=== PATIENT | female | born 1950 | race Caucasian/White ===

== ENCOUNTER 2016-02-06 14:21 | Inpatient (IN) | payer MEDICARE ==
[~2016-02-06] VITALS: Ht 162.6 cm; Wt 70.0 kg
[~2016-02-06 14:21] MED LIST: CLON1 PO; GABA300 PO; IBUP800T23 PO; LAMO100 PO; METHO500 PO; MOTR200T PO; OXYC1SOL5 PO; PERI8.6T PO; RANI150 PO
--- NOTE | 2016-02-09 14:19 | MH ---
cc: TERRANCE MCKINNON MD DATE OF ADMISSION: 02/23/2016 PREOPERATIVE DIAGNOSIS Rheumatoid arthritis, left knee. PLANNED PROCEDURE Left total knee arthroplasty. CHIEF COMPLAINT AND HISTORY OF PRESENT ILLNESS This is a 65-year-old female with a history of rheumatoid arthritis, has multiple joint involvement. The patient currently has left knee pain which is severe and limits her activity. She has undergone a previous right total knee arthroplasty in [place] as well as a left total elbow replacement with subsequent removal. The patient has had progressive knee pain. This was aggravated after a fall in July of 2015. The patient has a history of spinal stenosis and has associated back and hip pain as well. The patient's left knee has been persistent. It has been unresponsive to treatment including medication, injection, pain medication, attempts at weight loss and therapy. Her x-rays show evidence of advanced arthritic change which is tricompartmental in nature but mildly worse in the medial compartment. It has the appearance of both inflammatory as well as osteoarthritic change. The patient feels very limited in her activity and given the alternatives of treatment, presents for total knee arthroplasty. PAST MEDICAL HISTORY The past medical history is significant for: 1. Rheumatoid arthritis. 2. Depression. 3. Hepatitis C. 4. Bipolar disorder. PREVIOUS SURGERIES 1. Right total knee arthroplasty. 2. Left total elbow replacement with subsequent removal. 3. ORIF of a right femur fracture. MEDICATIONS Current medications are: 1. Alprazolam 2 mg. 2. Clonazepam 1 mg. 3. Dilaudid 4 mg. 4. Gabapentin 300 mg. 5. Lamotrigine 100 mg. 6. Methotrexate 25 mg per mL injection. 7. Prednisone 10 mg. 8. Tizanidine 4 mg. 9. Zanaflex 4 mg. ALLERGIES CODEINE. FAMILY HISTORY Family history is significant for bladder cancer, emphysema, Alzheimer's dementia, prostate cancer and heart disease. SOCIAL HISTORY The patient smokes one-half pack of cigarettes daily and denies alcohol use. She is single. She is not employed. She is [id number]. REVIEW OF SYSTEMS Review of systems is otherwise noncontributory. PHYSICAL EXAMINATION HEENT: Normocephalic, atraumatic. Pupils equal, round and reactive to light. Extraocular muscles are intact. The oropharynx is clear. NECK: Neck is supple. There is minimally restricted range of motion. LUNGS: Clear to auscultation. HEART: Heart has a regular rate and rhythm. ABDOMEN: Soft, nondistended. Bowel sounds are present. /RECTAL: Deferred. EXTREMITIES: Reveals no cyanosis, clubbing or edema. The right knee has a well-healed surgical incision. The left knee has hypertrophic changes over the medial aspect. There is a small effusion. Range of motion is restricted from 10-110 degrees of flexion. She does have satisfactory mobility of the hip without pain. NEUROLOGIC: No focal deficit. She ambulates with a cane. ASSESSMENT Rheumatoid arthritis, left knee. PLAN Given the alternatives to the treatment, the patient does wish to pursue total knee arthroplasty based on the persistent and progressive nature of her symptomatology, its limitation of her daily activity and its unresponsiveness to treatment. The nature of the planned surgical procedure, the risks, the expected benefits, as well as the postoperative expectations have been discussed with her in detail. In addition, the alternatives of treatment and risk of same were discussed. The possibility of the procedure not improving her symptomatology was discussed and she acknowledges full understanding and consents to it. Terrance Mckinnon MD RKG/TLL /11:55 AM /2:13 PM
--- NOTE | 2016-04-12 10:17 | MH ---
cc: VELASQUEZ MCKINNON MD AKA: Tamela Dai DATE OF ADMISSION: 04/26/2016 PREOPERATIVE DIAGNOSIS Rheumatoid arthritis left knee PLANNED PROCEDURE Left total knee arthroplasty. CHIEF COMPLAINT AND HISTORY OF PRESENT ILLNESS This 64-year-old female has multiarticular rheumatoid arthritis. The patient currently has severe left knee pain. It has been progressive and limits her activity. She has undergone a previous right total knee arthroplasty in [place] as well as a left total elbow replacement and subsequent removal. The patient's knee pain was aggravated in a fall in July of 2015. The patient also has involvement of her spine which also causes back and hip pain. The patient's knee pain has been unresponsive to treatment including medication, injection, pain medication, attempts at weight loss and therapy. X-rays show advanced arthritic changes which is tricompartmental middle in nature but mildly worse in the medial compartment. It has the appearance of both inflammatory as well as osteoarthritic change. Given the limitation of daily activity and its unresponsiveness to treatment, she presents for total knee arthroplasty. PAST MEDICAL HISTORY Significant for - 1. Rheumatoid arthritis. 2. Depression; 3. Hepatitis C. 4. Bipolar disorder. PREVIOUS SURGERY 1. Right total knee arthroplasty. 2. Left total elbow replacement with subsequent removal. 3. ORIF of the right femur fracture. CURRENT MEDICATIONS 1. Alprazolam. 2. Clonazepam. 3. Dilaudid. 4. Gabapentin. 5. Lamotrigine. 6. Methotrexate. 7. Prednisone. 8. Tizanidine. 9. Zanaflex. ALLERGIES CODEINE. FAMILY HISTORY Significant for bladder cancer, emphysema, Alzheimer's dementia, prostate cancer and heart disease. SOCIAL HISTORY The patient smokes 1/2-pack of cigarettes daily and denies alcohol use. She is single. She is not employed. She is [id number]. REVIEW OF SYSTEMS Otherwise noncontributory. PHYSICAL EXAMINATION GENERAL: An otherwise healthy-appearing female in no obvious distress. HEENT: Normocephalic, atraumatic. Pupils equal, round and reactive to light. Extraocular muscles are intact. The oropharynx is clear. NECK: Supple. LUNGS: Clear to auscultation. HEART: Regular rate and rhythm. ABDOMEN: Soft, nondistended. Bowel sounds are present. AND RECTAL EXAMINATIONS: Deferred. EXTREMITIES: No cyanosis, clubbing or edema. The right knee has a well-healed surgical incision. The left knee has hypertrophic changes over the medial aspect. There is a small effusion. Range of motion is restricted from 10 to 110 degrees of flexion. She has satisfactory mobility of the hip without pain. NEUROLOGICALLY: No focal deficit. She ambulates with a cane. ASSESSMENT Rheumatoid arthritis left knee. PLAN Given the alternatives of treatment, the patient does wish to pursue total knee arthroplasty based on the persistent and progressive nature of her symptomatology, limitation of her daily activity and its unresponsiveness to treatment. The nature of the planned surgical procedure, the risks, the expected benefits, as well as the postoperative expectations have been discussed with her in detail. In addition, the alternatives to treatment and risks of same were discussed. The possibility of the procedure not improving her symptomatology was discussed and she acknowledges full understanding and consents to it. MD JENN Solares/JUSTEN /10:53 PM /10:13 AM
[2016-04-12] MEDS ORDERED: GABA600T PO ×2 (12:15)
[2016-04-12] MEDS ORDERED: LAMO100 PO (12:15)
[2016-04-12] MEDS ORDERED: XANA2TAB2 PO (12:15)
[2016-04-12] MEDS ORDERED: BENA25TA3 PO (12:17)
[2016-04-12] MEDS ORDERED: IBUP200T2 PO (12:17)
[2016-04-12] MEDS ORDERED: SOMI25TA PO (12:17)
[2016-04-26] MEDS ORDERED: ACETAMINOPHEN 1000 MG/100 ML VIAL IV ONE (06:47)
[2016-04-26] MEDS ORDERED: GABA300C5 PO ×3 (06:56)
[2016-04-26] MEDS ORDERED: VANCOMYCIN 1000 MG/NS 250 ML (for <70 kg) IV SCH ×2 (07:00)
[2016-04-26] MEDS ORDERED: ceFAZolin 2 GM PREMIX 50 ML IV SCH (07:00)
[2016-04-26] MEDS ORDERED: METOPROLOL TARTRATE 25 MG TAB PO PRN (07:00)
[2016-04-26] MEDS ORDERED: SODIUM CHLORID 0.9% 500 ML IV SCH (07:00)
[2016-04-26] MEDS ORDERED: INSULIN HUMAN REGULAR 1,000 UNITS/10 ML VIAL SQ PRN (07:00)
[2016-04-26 07:09] VITALS: BP 140/61; PULSE 86; RESP 18; TEMP 98.3; O2SAT 100
[2016-04-26] MEDS ORDERED: CIPR500T2 PO (07:22)
[2016-04-26] MEDS ORDERED: DEXAMETHASONE SOD PHOS 4 MG/ML VIAL ONE (08:09)
[2016-04-26] MEDS ORDERED: FAMOTIDINE 20 MG/2 ML VIAL ONE (08:09)
[2016-04-26] MEDS ORDERED: MIDAZOLAM HCL 5 MG/5 ML VIAL ONE (08:09)
[2016-04-26] MEDS ORDERED: ceFAZolin INJ 1,000 MG VIAL ONE (09:28)
[2016-04-26] MEDS: LACTATED RINGER'S 1000 ML INJ 1,000 ML IV SCH ×2 (10:27→20:35)
[2016-04-26] MEDS ORDERED: POVIDONE IODINE 10% SOLN 118 ML BOTTLE TOPICAL PRN (10:30)
[2016-04-26] MEDS ORDERED: MISCELLANEOUS NURSING INFORMATION XX PRN (10:30)
[2016-04-26] MEDS ORDERED: Post-op Orders (for Pharmacy) MISC XX ONE (10:30)
[2016-04-26] MEDS ORDERED: TEMAZEPAM 15 MG CAP PO PRN (10:30)
[2016-04-26] MEDS ORDERED: ONDANSETRON HCL 4 MG/2 ML VIAL IVP PRN (10:30)
[2016-04-26] MEDS ORDERED: diphenhydrAMINE HCL 25 MG CAP PO PRN (10:30)
[2016-04-26] MEDS ORDERED: NALOXONE HCL 0.4 MG/ML AMP IV PRN (10:30)
[2016-04-26] MEDS ORDERED: SODIUM CHLORIDE 0.9% FLUSH 5 ML FLUSH IVF PRN (10:30)
--- NOTE | 2016-04-26 10:37 | PD.OP ---
cc: Terrance Mike MD Operative Report Date of Surgery: Apr 26, 2016 Preoperative Diagnosis: (1) Rheumatoid arthritis involving left knee Postoperative Diagnosis: (1) Rheumatoid arthritis involving left knee Procedure: Left total knee arthroplasty Implants used: [employer] Vanguard total knee system size 65 press-fit femoral component, size 71 cemented tibial component with a 10 mm tibial bearing and a 34 cemented patellar button Anesthesia: Gen. with regional block Surgeon: Terrance Mike Tape Recorder Mechanic(s): Marisela Price PA-C ([place]) The surgical procedure was assisted by my physician's kindergarten teacher assistant. Her presence was necessary throughout the case for manipulation and positioning of the surgical extremity. My PA was assisting me throughout the duration of this procedure. The skill set of the physician kindergarten teacher assistant was medically necessary to complete this procedure. During the surgical case the surgical resident was working at the back table and the physician kindergarten teacher assistant was directly assisting me. Operation and Findings: Indications: This 64-year-old female with multiarticular rheumatoid arthritis has had progressive severe left knee pain. She is very limited in her activity. She has undergone previous right total knee arthroplasty in [place]. The patient's problem is been unresponsive to nonoperative measures including medication, injection, pain medication, tends weight loss and therapy. X-rays are consistent with advanced inflammatory as well as degenerative arthritis. Given the alternatives of the treatment she presents for total knee arthroplasty. Procedure and findings: The patient was taken to the operative suite and after undergoing an adequate level of general anesthesia was kept supine on the operating table. Preoperative antibiotics consisted of Ancef 2 g IV and vancomycin 1 g IV. The left lower extremity was then prepped and draped in usual sterile fashion with alcohol and Hibiclens. A standard anterior approach the knee was made with incision centered over the medial one third of the patella. This was carried down through skin and subcutaneous tense tissue with a knife. The quadricep tendon was identified proximally and the patellar tendon distally. A medial parapatellar arthrotomy was made. A large cloudy joint effusion was evacuated. The fluid was sent for stat Gram stain which revealed few WBCs and no organisms. Upon entering the knee joint is noted to be marked arthritic changes which were tricompartmental in nature. There was diffuse synovitis. A synovectomy was completed. The remnant of the ACL was excised. The menisci were excised. Osteophytes were removed. Attention was first focused on the distal femur where an intramedullary guide was used to make a 5 valgus cut. A sizing jig was then applied and a 65 selected. With the cutting block in place the anterior, posterior and chamfer cuts were made. Attention was then focused on the proximal tibia. An extramedullary guide was used. Approximately 4 mm of bone was resected. The varus/valgus alignment was also checked with an extramedullary guide. The tibia was then sized to a 71. A freehand technique was utilized on the patella. This was sized to a 34. Drill holes were made and trial components placed. The 10 mm tibial bearing gave the best range of motion and stability. There was good patellar tracking. These components were therefore selected. The femoral drill holes were made. The tibial cement punches were made. The wound was thoroughly irrigated with pulse lavage. Bone cement was prepared on the back table. After thorough drying it was applied to the proximal tibia. The tibial component was then impacted in the place. All excess bone cement was removed. The tibial insert was then placed and the locking mechanism seated. The femoral component was then impacted in the place. The knee was then placed in full extension for further compression. After thorough drying bone cement was applied to the undersurface of the patella. The patellar button was seated and held with a compression clamp. All excess bone cement was removed. Once the cement had matured good range of motion, patellar tracking and stability was again noted. The wound was again thoroughly irrigated with pulse lavage. AutoVac drains were left in place. The incision was closed in layers utilizing #1 Vicryl suture on the extensor mechanism, 0 Vicryl suture on the deep tissue, 2-0 Vicryl suture on the subcutaneous tissue and rodolfo on the skin. Sterile dressings were applied the patient was awakened transferred to the hospital bed and taken to the recovery room in stable condition. Estimated blood loss: Less than 100 cc Complications: None Terrance Mike MD Apr 26, 2016 10:27
[2016-04-26] MEDS ORDERED: *HYDROmorphone PF 1 MG VIAL PERIprocedural Use ONLY ONE ×2 (10:44→11:00)
[2016-04-26] MEDS ORDERED: fentaNYL CITRATE 250 MCG/5 ML AMP ONE ×2 (10:45)
[2016-04-26] MEDS ORDERED: MORPHINE SULFATE 4 MG/ML INJ ONE (10:45)
[2016-04-26] MEDS ORDERED: ONDANSETRON HCL 4 MG/2 ML VIAL IV PUSH ONE (10:55)
[2016-04-26] MEDS ORDERED: NEOSTIGMINE 3 MG/3 ML SYR IV ONE (10:55)
[2016-04-26] MEDS ORDERED: PROPOFOL 200 MG/20 ML AMP IV ONE (10:55)
[2016-04-26] MEDS ORDERED: LACTATED RINGER'S 1000 ML INJ 2,000 ML IV ONE (10:55)
[2016-04-26] MEDS: GABAPENTIN 300 MG CAP PO SCH ×2 (11:30→20:33)
[2016-04-26] MEDS ORDERED: BUPIVACAINE HCL PF 0.5% 30 ML VIAL NB ONE (11:35)
[2016-04-26] MEDS ORDERED: BUPIVACAINE HCL PF 0.25% 30 ML VIAL NB ONE (11:35)
--- NOTE | 2016-04-26 11:38 | RADRPT ---
EXAM DATE/TIME: 04/26/2016 10:54 [facility] COMPARISON: No previous studies available for comparison. INDICATIONS : Post left knee surgery. MEDICAL HISTORY : Arthritis. SURGICAL HISTORY : None. ENCOUNTER: Initial ACUITY: 1 day PAIN SCORE: 9/10 LOCATION: Left knee FINDINGS: AP and lateral views of the knee following arthroplasty reveals a prosthesis in anatomic alignment. F racture is not appreciated. Surgical drain is evident CONCLUSION: Status post total knee arthroplasty. Erich Kapoor MD FACR Board Certified Radiologist. This report was verified electronically.
[2016-04-26] MEDS ORDERED: MORPHINE SULFATE 4 MG/ML INJ IV PUSH PRN (11:45)
[2016-04-26] MEDS ORDERED: DO NOT ADM ANY ANTICOAGULANT DRUGS XX PRN (12:15)
[2016-04-26] MEDS: lamoTRIgine 100 MG TAB PO SCH (13:01)
[2016-04-26] MEDS: PCA - TOTAL MG MORPHINE DELIVERED PER SHIFT SCH ×2 (14:00→20:34)
[2016-04-26] MEDS: ceFAZolin 2 GM PREMIX 50 ML IV SCH ×2 (14:18→20:33)
[2016-04-26 14:30] VITALS: BP 113/64; PULSE 78; RESP 18; TEMP 97.1; O2SAT 99
[2016-04-26] MEDS: MORPHINE SULFATE 30 MG/30 ML PCA IV SCH ×2 (14:58→22:53)
[2016-04-26 16:00] VITALS: BP 111/54; PULSE 71
[2016-04-26] MEDS: HYDROmorphone HCL 2 MG TAB PO PRN (16:13)
[2016-04-26 20:00] VITALS: BP 114/58; PULSE 75; RESP 16; TEMP 98.6; O2SAT 100
[2016-04-26] MEDS: ALPRAZolam 1 MG TAB PO SCH (20:34)
[2016-04-26] MEDS: SODIUM CHLORIDE 0.9% FLUSH 5 ML FLUSH IVF SCH (20:34)
[2016-04-26 22:21] VITALS: O2SAT 97
[2016-04-27] VITALS (7 sets, daily range): BP systolic 97–115; BP diastolic 51–68; PULSE 79–86; RESP 16–22; TEMP 97.2–100.5; O2SAT 92–99
[2016-04-27] MEDS: ceFAZolin 2 GM PREMIX 50 ML IV SCH (01:55)
[2016-04-27 05:16] LABS: HEMATOCRIT 23.9 % (35.0-46.0); REVIEW FLAG FINAL
[2016-04-27] MEDS: PCA - TOTAL MG MORPHINE DELIVERED PER SHIFT SCH ×3 (06:00→21:57)
[2016-04-27] MEDS: LACTATED RINGER'S 1000 ML IV SCH (07:00)
[2016-04-27] MEDS: CHLORHEXIDINE GLUCONATE 4% SOLN 120 ML BTL TOP SCH (07:00)
[2016-04-27] MEDS: SODIUM CHLORIDE 0.9% FLUSH 5 ML FLUSH IVF SCH ×2 (09:00→21:58)
[2016-04-27] MEDS: ALPRAZolam 1 MG TAB PO SCH ×2 (09:13→21:57)
[2016-04-27] MEDS: GABAPENTIN 300 MG CAP PO SCH ×3 (09:13→21:56)
[2016-04-27] MEDS: MAGNESIUM HYDROXIDE SUSP 30 ML CUP PO PRN (09:13)
[2016-04-27] MEDS: ENOXAPARIN SODIUM 40 MG/0.4 ML SYRINGE SQ SCH (09:48)
[2016-04-27] MEDS: MORPHINE SULFATE 30 MG/30 ML PCA IV SCH ×2 (11:07→17:08)
[2016-04-27] MEDS: LACTATED RINGER'S 1000 ML INJ 1,000 ML IV SCH ×2 (11:27→21:58)
--- NOTE | 2016-04-27 12:42 | PD.ORT.PN ---
Subjective Post Op Day #: 1 Subjective Remarks Pt laying comfortably in bed, awake and answering questions appropiately. Her knee is in the CPM machine. She admits her left knee pain is well under control. She does have a history of chronic pain for over 6 months. No other complaints noted. Objective Vitals Vital Signs Date Time Temp Pulse Resp B/P Pulse Ox O2 Delivery O2 Flow Rate FiO2 04/27/16 12:02 100.0 86 18 115/54 92 04/27/16 08:00 100.4 86 18 100/62 98 04/27/16 04:00 100.2 84 16 97/51 97 04/27/16 00:00 98.8 79 17 113/56 99 04/26/16 22:53 18 04/26/16 22:21 97 21 04/26/16 20:34 18 04/26/16 20:00 98.6 75 16 114/58 100 04/26/16 16:00 71 111/54 04/26/16 14:58 18 04/26/16 14:30 97.1 78 18 113/64 99 04/26/16 13:47 73 15 106/72 99 Room Air 04/26/16 13:00 73 13 141/90 100 Room Air I/O 04/26/16 04/26/16 04/26/16 04/27/16 04/27/16 04/27/16 07:00 15:00 23:00 07:00 15:00 23:00 Intake Total 2362 ml 240 ml 240 ml Output Total 600 ml 375 ml 300 ml Balance 1762 ml -135 ml -60 ml Intake Oral 240 ml 240 ml IV Total 262 ml Other 2100 ml Output Urine Total 100 ml 300 ml 250 ml Drainage Total 75 ml 50 ml Estimated Blood Loss 50 ml Other 450 ml # Bowel Movements 0 0 Result Diagram: 04/27/16 0439 Imaging Last 48 hours Impressions Knee X-Ray 04/26/16 0000 Signed Impressions: Service Date/Time: Tuesday, April 26, 2016 10:54 - CONCLUSION: Status post total knee arthroplasty. Erich Kapoor MD Procedures Left Total Knee Arthroplasty (04/26/16) Objective Remarks LLE: Dressing dry and intact. Mild tenderness and swelling over incision site. No erythema or ecchymosis noted. Skin is warm. She is able to move her ankle and toes freely. Good cap refill. No calf pain. Negative Carter's sign. Neurovascular intact. 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 Progress rehab. Continue Lovenox for DVT prophylaxis , pain management and bowel regimen. Continue use of CPM machine. Discharge planning. Marisela Price Apr 27, 2016 12:42
[2016-04-27] MEDS: DOCUSATE SODIUM 100 MG CAP PO SCH (21:00)
[2016-04-27] MEDS: MULTIVITAMINS/MINERALS THERAPEUTIC TAB PO SCH (21:57)
[2016-04-28] VITALS (7 sets, daily range): BP systolic 102–118; BP diastolic 53–60; PULSE 78–91; RESP 17–18; TEMP 97.7–101.5; O2SAT 92–96
[2016-04-28] MEDS: ACETAMINOPHEN 325 MG TAB PO PRN ×2 (00:29→14:00)
[2016-04-28] MEDS: PCA - TOTAL MG MORPHINE DELIVERED PER SHIFT SCH ×3 (06:00→22:00)
[2016-04-28] MEDS: CHLORHEXIDINE GLUCONATE 4% SOLN 120 ML BTL TOP SCH (07:00)
[2016-04-28] MEDS: LACTATED RINGER'S 1000 ML IV SCH (07:00)
[2016-04-28] MEDS ORDERED: ENOX40P SQ (07:51)
[2016-04-28] MEDS ORDERED: DILA2TAB2 PO (07:51)
--- NOTE | 2016-04-28 08:00 | PD.ORT.PN ---
Subjective Post Op Day #: 2 Subjective Remarks Pt laying comfortably in bed, awake and answering questions appropriately. Her knee is in the canvas knee splint. She admits she had pain yesterday with attempts to get out of bed. Pain is under control this morning. RN noted a temp of 101 and inability to urinate yesterday. RN performed a straight cath to the patient. Advised RN to contact provider if this happens again, urine should be sent for culture. No other complaints noted. Objective Vitals Vital Signs Date Time Temp Pulse Resp B/P Pulse Ox O2 Delivery O2 Flow Rate FiO2 04/28/16 04:00 98.4 78 17 110/53 93 04/28/16 00:00 101.5 91 17 115/54 93 04/27/16 21:57 18 04/27/16 20:32 100.5 85 22 110/68 04/27/16 16:48 97.2 83 18 108/64 96 04/27/16 12:02 100.0 86 18 115/54 92 04/27/16 10:00 99 21 04/27/16 08:00 100.4 86 18 100/62 98 I/O 04/27/16 04/27/16 04/27/16 04/28/16 04/28/16 04/28/16 07:00 15:00 23:00 07:00 15:00 23:00 Intake Total 240 ml 943 ml 360 ml 480 ml Output Total 300 ml 1190 ml Balance -60 ml -247 ml 360 ml 480 ml Intake Oral 240 ml 480 ml 360 ml 480 ml IV Total 463 ml Output Urine Total 250 ml 1100 ml Drainage Total 50 ml 90 ml # Voids 0 # Bowel Movements 0 0 0 1 Result Diagram: 04/27/16 0439 Imaging Last 48 hours Impressions Knee X-Ray 04/26/16 0000 Signed Impressions: Service Date/Time: Tuesday, April 26, 2016 10:54 - CONCLUSION: Status post total knee arthroplasty. Erich Kapoor MD Procedures Left Total Knee Arthroplasty (04/26/16) Objective Remarks LLE: Dressing dry and intact. Mild tenderness and swelling over incision site. No erythema or ecchymosis noted. Skin is warm. She is able to move her ankle and toes freely. Good cap refill. No calf pain. Negative Carter's sign. Neurovascular intact. 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 Progress rehab. Change dressing today. Continue Lovenox for DVT prophylaxis, pain management and bowel regimen. Continue use of CPM machine. Discharge planning - to rehab center. Marisela Price Apr 28, 2016 08:00
[2016-04-28] MEDS: MULTIVITAMINS/MINERALS THERAPEUTIC TAB PO SCH ×2 (08:50→22:09)
[2016-04-28] MEDS: DOCUSATE SODIUM 100 MG CAP PO SCH ×2 (08:51→22:09)
[2016-04-28] MEDS: lamoTRIgine 100 MG TAB PO SCH (08:51)
[2016-04-28] MEDS: GABAPENTIN 300 MG CAP PO SCH ×3 (09:00→22:08)
[2016-04-28] MEDS: ALPRAZolam 1 MG TAB PO SCH ×2 (09:00→22:10)
[2016-04-28] MEDS: SODIUM CHLORIDE 0.9% FLUSH 5 ML FLUSH IVF SCH ×2 (09:00→22:10)
[2016-04-28] MEDS: ENOXAPARIN SODIUM 40 MG/0.4 ML SYRINGE SQ SCH (09:13)
[2016-04-28] MEDS ORDERED: MISCELLANEOUS PHARMACY INFORMATION XX ONE (12:00)
[2016-04-28] MEDS: LACTATED RINGER'S 1000 ML INJ 1,000 ML IV SCH (12:27)
[2016-04-28] MEDS: HYDROmorphone HCL 2 MG TAB PO PRN (14:00)
[2016-04-28] MEDS: HYDROmorphone HCL 4 MG TAB PO PRN (23:20)
[2016-04-29] VITALS (8 sets, daily range): BP systolic 92–109; BP diastolic 46–55; PULSE 73–86; RESP 16–19; TEMP 97.3–102; O2SAT 93–98
[2016-04-29] MEDS: ACETAMINOPHEN 325 MG TAB PO PRN ×3 (00:03→20:58)
[2016-04-29] MEDS: LACTATED RINGER'S 1000 ML INJ 1,000 ML IV SCH ×2 (00:57→10:46)
[2016-04-29] MEDS: HYDROmorphone HCL 4 MG TAB PO PRN ×2 (03:09→06:03)
[2016-04-29 04:27] LABS: BLOOD, URINE NEG (NEG); COMMENT (UR) CULTURE INDICATED; CULTURE IF INDICATED CULTURE INDICATED; GLUCOSE,URINE NEG (NEG); KETONE, URINE NEG (NEG); MUCUS URINE FEW /lpf (OCC); NITRITE,URINE NEG (NEG); SQUAMOUS EPITHELIAL CELL URINE 3 /hpf (0-5); URINE COLOR YELLOW (YELLW/STRAW)
[2016-04-29] MEDS: PCA - TOTAL MG MORPHINE DELIVERED PER SHIFT SCH ×3 (06:00→22:00)
[2016-04-29] MEDS: LACTATED RINGER'S 1000 ML IV SCH (07:00)
[2016-04-29] MEDS: MAGNESIUM HYDROXIDE SUSP 30 ML CUP PO PRN ×3 (08:10→17:53)
[2016-04-29] MEDS: lamoTRIgine 100 MG TAB PO SCH (08:11)
[2016-04-29] MEDS: SODIUM CHLORIDE 0.9% FLUSH 5 ML FLUSH IVF SCH ×2 (08:11→21:00)
[2016-04-29] MEDS: MULTIVITAMINS/MINERALS THERAPEUTIC TAB PO SCH ×2 (08:11→20:59)
[2016-04-29] MEDS: DOCUSATE SODIUM 100 MG CAP PO SCH ×2 (08:11→21:00)
[2016-04-29] MEDS: GABAPENTIN 300 MG CAP PO SCH ×3 (08:11→20:59)
[2016-04-29] MEDS: ALPRAZolam 1 MG TAB PO SCH ×2 (08:11→20:59)
[2016-04-29] MEDS: ENOXAPARIN SODIUM 40 MG/0.4 ML SYRINGE SQ SCH (08:12)
--- NOTE | 2016-04-29 08:29 | PD.ORT.PN ---
Subjective Post Op Day #: 3 Subjective Remarks Pt laying comfortably in bed, awake and answering questions appropriately. Her knee is in the canvas knee splint. She admits to severe pain with therapy yesterday. Pain is under control this morning. She is anxious that her pain will not be better at time of discharge. She understands she does have a history of chronic pain and surgical site pain will be treated appropriately. No other complaints noted. Objective Vitals Vital Signs Date Time Temp Pulse Resp B/P Pulse Ox O2 Delivery O2 Flow Rate FiO2 04/29/16 04:30 98.7 04/29/16 00:30 101.4 86 19 104/46 94 04/28/16 20:25 99.8 79 18 110/60 96 04/28/16 19:47 99.8 79 18 110/60 96 04/28/16 18:32 21 04/28/16 16:09 97.7 79 18 108/60 04/28/16 12:20 99.6 83 18 102/59 92 I/O 04/28/16 04/28/16 04/28/16 04/29/16 04/29/16 04/29/16 07:00 15:00 23:00 07:00 15:00 23:00 Intake Total 480 ml 480 ml 240 ml 720 ml Output Total 950 ml 200 ml 200 ml Balance -470 ml 280 ml 40 ml 720 ml Intake Oral 480 ml 480 ml 240 ml 720 ml Output Urine Total 950 ml 200 ml 200 ml # Voids 2 # Bowel Movements 1 0 0 Result Diagram: 04/27/16 0439 Imaging Last 48 hours Impressions Knee X-Ray 04/26/16 0000 Signed Impressions: Service Date/Time: Tuesday, April 26, 2016 10:54 - CONCLUSION: Status post total knee arthroplasty. Erich Kapoor MD Procedures Left Total Knee Arthroplasty (04/26/16) Objective Remarks LLE: Dressing dry and intact. Mild tenderness and swelling over incision site. No erythema or ecchymosis noted. Skin is warm. She is able to move her ankle and toes freely. Good cap refill. No calf pain. Negative Carter's sign. Neurovascular intact. 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 Progress rehab. Change dressing daily. Continue Lovenox for DVT prophylaxis, pain management and bowel regimen. Continue use of CPM machine. Pain medication was adjusted. Discharge planning - to rehab center most likely tomorrow. Marisela Price Apr 29, 2016 08:29
[2016-04-29] MEDS: oxyCODONE HCL 10 MG CONTROLLED RELEASE TAB PO SCH ×2 (11:28→21:00)
[2016-04-29] MEDS: BISACODYL 10 MG SUPP PR PRN ×3 (11:34→17:48)
[2016-04-29] MEDS: HYDROmorphone HCL 2 MG TAB PO PRN ×2 (13:52→17:49)
[2016-04-29] MEDS ORDERED: SENNOSIDES 8.6 MG TAB PO PRN (19:15)
[2016-04-30] MEDS: LACTATED RINGER'S 1000 ML INJ 1,000 ML IV SCH ×2 (01:57→08:27)
[2016-04-30] MEDS: ACETAMINOPHEN 325 MG TAB PO PRN ×2 (03:45→08:15)
[2016-04-30 03:50] VITALS: BP 98/55; PULSE 70; RESP 16; TEMP 97.5; O2SAT 98
[2016-04-30] MEDS: LACTATED RINGER'S 1000 ML IV SCH (06:55)
[2016-04-30] MEDS: PCA - TOTAL MG MORPHINE DELIVERED PER SHIFT SCH (06:55)
--- NOTE | 2016-04-30 07:33 | PD.ORT.PN ---
Subjective Post Op Day #: 4 Subjective Remarks Pt laying comfortably in bed, awake and answering questions appropriately. I spoke with RN yesterday via the phone about pain management and constipation issues. Pt had a BM over night with addition of Senokot. Pt voiding with ease. She admits the change of treatment in pain medication did not help. She is anxious, patient was reassured and is ready for discharge today to rehab. She understands she does have a history of chronic pain and surgical site pain will be treated appropriately. No other complaints noted. Objective Vitals Vital Signs Date Time Temp Pulse Resp B/P Pulse Ox O2 Delivery O2 Flow Rate FiO2 04/29/16 23:15 99.6 80 18 98/49 95 04/29/16 20:13 21 04/29/16 20:00 98.7 77 17 98/50 94 04/29/16 16:00 99.5 78 16 96/49 94 04/29/16 14:07 102.0 04/29/16 12:00 97.9 82 16 92/48 98 04/29/16 08:00 97.3 73 16 109/55 93 I/O 04/29/16 04/29/16 04/29/16 04/30/16 04/30/16 04/30/16 07:00 15:00 23:00 07:00 15:00 23:00 Intake Total 720 ml 600 ml 480 ml 240 ml Balance 720 ml 600 ml 480 ml 240 ml Intake Oral 720 ml 600 ml 480 ml 240 ml # Voids 2 3 1 1 # Bowel Movements 0 0 0 Result Diagram: 04/27/16 0439 Imaging Last 48 hours Impressions Knee X-Ray 04/26/16 0000 Signed Impressions: Service Date/Time: Tuesday, April 26, 2016 10:54 - CONCLUSION: Status post total knee arthroplasty. Erich Kapoor MD Procedures Left Total Knee Arthroplasty (04/26/16) Objective Remarks LLE: Dressing dry and intact. Mild tenderness and swelling over incision site. No erythema or ecchymosis noted. Skin is warm. She is able to move her ankle and toes freely. Good cap refill. No calf pain. Negative Carter's sign. Neurovascular intact. 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 Progress rehab. Have pt sit in chair and use BSC. Continue use of CPM machine. Change dressing daily. Continue Lovenox for DVT prophylaxis, pain management and bowel regimen. Pain medication was adjusted to match pre-operative pain dose - pt is okay with this. Discharge planning - to rehab center today. Marisela Price Apr 30, 2016 07:33
--- NOTE | 2016-04-30 07:47 | HHI.DS ---
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 She had a history of severe left knee pain that restricted her daily activities. She underwent several months of failed conservative care, including therapy, injections, weight loss and pain medication. She has a history of a successful right TKA and history of left elbow replacement and then removal of hardware. Upon evaluation and xrays it was determined to proceed forward with left total knee replacement. CBC/BMP: 04/27/16 0439 Significant Findings Laboratory Tests Test 04/29/16 01:45 Urine Turbidity HAZY (CLEAR) Urine Leukocyte Esterase LARGE (NEG) Urine WBC 11 /hpf (0-5) Urine Mucus FEW /lpf (OCC) Imaging Last Impressions Knee X-Ray 04/26/16 0000 Signed Impressions: Service Date/Time: Tuesday, April 26, 2016 10:54 - CONCLUSION: Status post total knee arthroplasty. Erich Kapoor MD PE at Discharge LLE: Dressing dry and intact. Mild tenderness and swelling over incision site. No erythema or ecchymosis noted. Skin is warm. She is able to move her ankle and toes freely. Good cap refill. No calf pain. Negative Carter's sign. Neurovascular intact. Hospital Course Patient presented to [facility] for left total knee replacement on 2016. She was evaluated in same day surgery and it was decided to proceed forward with the procedure. Details of planned surgical procedure can be read in operative note by Dr Mike. Post operative xrays were reviewed and showed hardware in good position. Pre and post operative antibiotics were given. Patient stayed in the hospital for pain management, daily therapy and input/ output control. Lovenox was given for DVT prophylaxis. Patient will be discharged in good condition to rehab facility for continued care. Pt Condition on Discharge: Good Discharge Disposition: Rehab Inpatient Discharge Instructions Diet Instructions: As Tolerated, No Restrictions, High Fiber Diet Activities You Can Perform: Weight Bearing as Shania Activities to Avoid: Lifting/Bending Marisela Price Apr 30, 2016 07:47
[2016-04-30] MEDS ORDERED: WALKER/ADULT/FO1 MIS (07:53)
[2016-04-30] MEDS ORDERED: DILA4TAB2 PO (07:53)
[2016-04-30] MEDS ORDERED: BEDSIDE COMMODE1 MI1 (07:53)
[2016-04-30 08:00] VITALS: BP 129/59; PULSE 74; RESP 18; TEMP 98.7; O2SAT 98
[2016-04-30] MEDS: ALPRAZolam 1 MG TAB PO SCH (08:15)
[2016-04-30] MEDS: SODIUM CHLORIDE 0.9% FLUSH 5 ML FLUSH IVF SCH (08:16)
[2016-04-30] MEDS: GABAPENTIN 300 MG CAP PO SCH ×2 (08:16→12:16)
[2016-04-30] MEDS: MULTIVITAMINS/MINERALS THERAPEUTIC TAB PO SCH (08:16)
[2016-04-30] MEDS: lamoTRIgine 100 MG TAB PO SCH (08:16)
[2016-04-30] MEDS: ENOXAPARIN SODIUM 40 MG/0.4 ML SYRINGE SQ SCH (08:16)
[2016-04-30] MEDS: DOCUSATE SODIUM 100 MG CAP PO SCH (08:16)
[2016-04-30] MEDS: MAGNESIUM HYDROXIDE SUSP 30 ML CUP PO PRN (08:18)
[2016-04-30] MEDS: HYDROmorphone HCL 4 MG TAB PO PRN ×2 (08:20→12:17)
[2016-04-30 12:00] VITALS: BP 127/74; PULSE 69; RESP 16; TEMP 97; O2SAT 95
[2016-04-30] MEDS: BISACODYL 10 MG SUPP PR PRN (12:17)
== END 2016-04-30 15:01 | DRG 470 ==
LOC: HSDI 04-26 06:15 → N06A 04-26 14:36
PROVIDERS: ADMIT Orthopaedic Surgery Sports Medicine; ATTEND Orthopaedic Surgery Sports Medicine
PROC: 3E0T3CZ (ICD-10-PCS; 2016-04-26)
PROC: 0SRD0J9 Replacement of Left Knee Joint with Synthetic Substitute, Cemented, Open Approach (ICD-10-PCS; principal; 2016-04-26 08:24)
DX: M06.9 Rheumatoid arthritis, unspecified (principal); B19.20 Unspecified viral hepatitis C without hepatic coma; F31.9 Bipolar disorder, unspecified; F17.210 Nicotine dependence, cigarettes, uncomplicated; R33.9 Retention of urine, unspecified; K59.00 Constipation, unspecified; G89.29 Other chronic pain; Z88.5 Allergy status to narcotic agent
CPT/HCPCS: 73560; 81001; 85014; 85018; 87015; 87070; 87086; 87102; 87116; 87205; 87206; 88305; 94150; C1776; J0131; J0690; J1100; J1170; J1650; J2250; J2270; J2405; J2710; J3010; J3370; J7050; J7120; L1830

== ENCOUNTER → 2016-04-12 | Outpatient (CLI) | payer MEDICARE ==
[~2016-04-12] MED LIST changes: +BEDSIDE COMMODE1 MI1; +BENA25TA3 PO; +CIPR500T2 PO; +DILA2TAB2 PO; +DILA4TAB2 PO; +DIPH25CA PO; +ENOX40P SQ; +GABA300C5 PO; +GABA600T PO; +IBUP200T2 PO; +KLON2TAB PO; +MEDR4PAK PO; +ROBA750T PO; +SOMI25TA PO; +TRYP500T PO; +WALKER/ADULT/FO1 MIS; +XANA2TAB2 PO
[2016-04-12 12:27] LABS: AUTOMATED NEUTROPHIL # 4.7 TH/MM3 (1.8-7.7); BASOPHIL # 0.1 TH/MM3 (0-0.2); BASOPHIL % 1.3 % (0.0-2.0); EOSINOPHIL # 0.3 TH/MM3 (0-0.4); EOSINOPHIL % 4.6 % (0.0-4.0); HEMATOCRIT 32.6 % (35.0-46.0); HEMO FLAGS DIFF FINAL; LYMPH % 17.1 % (9.0-44.0); LYMPHOCYTE # 1.2 TH/MM3 (1.0-4.8); MEAN CELL VOLUME 83.9 FL (80.0-100.0); MEAN CORPUSCULAR HEMOGLOBIN 28.6 PG (27.0-34.0); MONO % 12.6 % (0.0-8.0); NEUT % 64.4 % (16.0-70.0); PLATELET COUNT 382 TH/MM3 (150-450); RED BLOOD COUNT 3.89 MIL/MM3 (4.00-5.30); WHITE BLOOD COUNT 7.3 TH/MM3 (4.0-11.0)
[2016-04-12 12:38] LABS: APTT (PATIENT) 29.9 SEC (24.3-30.1); PROTHROMBIN TIME - PATIENT 11.1 SEC (9.8-11.6)
[2016-04-12 12:54] LABS: BICARBONATE 27.4 MEQ/L (21.0-32.0); POTASSIUM 3.7 MEQ/L (3.5-5.1)
[2016-04-12 14:05] LABS: BACTERIA, URINE RARE /hpf; BLOOD, URINE NEG (NEG); GLUCOSE,URINE NEG (NEG); HYALINE CAST, URINE 3 /lpf (RARE); KETONE, URINE NEG (NEG); MUCUS URINE FEW /lpf (OCC); NITRITE,URINE NEG (NEG); SQUAMOUS EPITHELIAL CELL URINE 1 /hpf (0-5); URINE COLOR YELLOW (YELLW/STRAW)
[2016-04-12 14:06] LABS: COMMENT (UR) CULTURE INDICATED; CULTURE IF INDICATED CULTURE INDICATED
--- NOTE | 2016-04-12 14:30 | RADRPT ---
EXAM DATE/TIME: 04/12/2016 13:12 [facility] COMPARISON: FOOT RIGHT COMPLETE ([id number]), July 19, 2015, 10:20. INDICATIONS : Evaluate for pneumonia, pneumothorax, communicable diseases MEDICAL HISTORY : None. SURGICAL HISTORY : None. ENCOUNTER: Initial ACUITY: 1 day PAIN SCORE: 3/10 LOCATION: Bilateral chest FINDINGS: The heart is normal in size. There are diffuse mild, chronic interstitial changes. The lungs are othe rwise clear. Visualized bony structures are grossly intact. CONCLUSION: 1. No acute cardiopulmonary findings. There are mild chronic interstitial changes. Stuart Kapoor MD on April 12, 2016 at 14:28 Board Certified Radiologist. This report was verified electronically.
[2016-04-12 15:51] LABS: MRSA PCR NEGATIVE (NEGATIVE); STAPH AUREUS PCR POSITIVE (NEGATIVE)
--- NOTE | 2016-04-13 16:49 | EKG ---
Date Performed: 04/12/2016 Time Performed: 12:02:14 PTAGE: 65 years EKG: Sinus rhythm Compared to prior tracing no significant change NORMAL ECG PREVIOUS TRACING 08/01/2014 @14.22.42 DOCTOR: Shelbie Collins Interpretating Date/Time 04/13/2016 16:47:33
== END ==
LOC: CPRE 11:14
PROVIDERS: ATTEND Orthopaedic Surgery Sports Medicine
DX: Z01.810 Encounter for preprocedural cardiovascular examination (principal); M79.609 Pain in unspecified limb; Z01.812 Encounter for preprocedural laboratory examination; Z01.818 Encounter for other preprocedural examination; Z79.01 Long term (current) use of anticoagulants; Z13.9 Encounter for screening, unspecified
CPT/HCPCS: 36415; 71020; 80048; 81001; 85025; 85610; 85730; 87086; 87640; 87641; 93005

== ENCOUNTER 2016-07-14 15:49 | Emergency (ER) | payer MEDICARE ==
[~2016-07-14] VITALS: Ht 162.6 cm; Wt 63.5 kg
[~2016-07-14 15:49] MED LIST changes: -BENA25TA3 PO; -CIPR500T2 PO; -CLON1 PO; -DILA2TAB2 PO; -DIPH25CA PO; -GABA300 PO; -GABA600T PO; -IBUP200T2 PO; -IBUP800T23 PO; -KLON2TAB PO; -MEDR4PAK PO; -METHO500 PO; -MOTR200T PO; -OXYC1SOL5 PO; -PERI8.6T PO; -RANI150 PO; -ROBA750T PO; -TRYP500T PO
[2016-07-14 15:51] VITALS: BP 111/59; PULSE 89; RESP 16; TEMP 98.2; O2SAT 98
--- NOTE | 2016-07-14 16:17 | PD ---
HPI Chief Complaint: Pain: Acute or Chronic Time Seen by Provider: 16:06 Travel History International Travel<30 days: No Contact w/Intl Traveler<30days: No Traveled to known affect area: No History of Present Illness HPI This is a 66-year-old female with a history of rheumatoid arthritis who presents to the emergency department with increasing pain in her right shoulder , right wrist and right hand, constant, severe, worse with movement, keeping her up at night time. She feels like her rheumatoid arthritis is flaring up. Currently she takes naproxen for her pain but it has not been helping. She says that steroids make her worse. She tried to be on methotrexate but that messed up her liver. Currently she is trying holistic treatments. PFSH Past Medical History Arthritis: Yes (RHEUMATOID & OSTEOARTHRITIS) Autoimmune Disease: Yes (RHEUMATOID ARTHRITIS) Bipolar Disorder: Yes Anxiety: Yes Depression: Yes Heart Rhythm Problems: Yes (MURMUR, PALPATATIONS) Cancer: Yes (CERVICAL CANCER) Cardiovascular Problems: No Chest Pain: No Cerebrovascular Accident: No Diabetes: No Diminished Hearing: Yes ([place]) Endocrine: No Gastrointestinal Disorders: No Headaches: No Hepatitis: Yes (Hep C) Hiatal Hernia: No Immune Disorder: Yes (RHEUMATOID) Implanted Vascular Access Dvce: No Musculoskeletal: Yes (FX RIGHT ANKLE, LEFT KNEE PAIN, RHEUMATOID ARTHRITIS) Neurologic: No Psychiatric: Yes (BIPOLAR, ANXIETY, HX PANIC ATTACKS) Reproductive: Yes Migraines: No Seizures: No Thyroid Disease: No Ulcer: Yes ("bled out" in '03) PNEUMOCCOCAL Vaccine (Year): 2 Menopausal: Yes : 3 Para: 3 Miscarriage: 0 : 0 Ectopic : No Ovarian Cysts: No Tubal Ligation: No Past Surgical History Abdominal Surgery: No AICD: No Appendectomy: Yes Body Medical Devices: VINOD RIGHT FEMUR Cardiac Surgery: No Section: No Ear Surgery: No Eye Surgery: Yes ( CHILD) Genitourinary Surgery: No Gynecologic Surgery: Yes (CERVICAL CONE PREOCEDURE) Hysterectomy: Yes (H/O CERVICAL CANCER) Joint Replacement: Yes (TOTAL RIGHT KNEE) Neurologic Surgery: No Oral Surgery: No Pacemaker: No Thoracic Surgery: No Other Surgery: Yes (R KNEE REPLACEMENT,PROSTHETIC L ELBOW) Social History Alcohol Use: No Tobacco Use: Yes (8 CIGARETTES DAILY ) Substance Use: No Allergies-Medications (Allergen,Severity, Reaction): Coded Allergies: Buspar (Verified Allergy, Severe, INCREASES ANXIETY, 07/14/16) Codeine (Verified Allergy, Severe, rash and swelling; hives, 07/14/16) PT HAS TAKEN PERCOCET BEFORE WITHOUT ANY PROBLEM PER RN 08/12/06 Sulfa (Verified Allergy, Severe, CHILLS, FEVER, 07/14/16) Ultram (Verified Allergy, Severe, Dizziness, 07/14/16) Talwin (Verified Allergy, Unknown, UNKNOWN, 07/14/16) Lortab (Verified Adverse Reaction, Intermediate, DIZZY, NAUSEA, 07/14/16) Reported Meds & Prescriptions Reported Meds & Active Scripts Active Walker/Adult/Folding (Device) 1 Mis Mis 1 Ea .ROUTE DIRECTED Reported Gabapentin 300 Mg Cap 2 Tab PO HS Gabapentin 300 Mg Cap 2 Tab PO AC LUNCH Gabapentin 300 Mg Cap 3 Tab PO DAILY Lamictal (Lamotrigine) 100 Mg Tab 100 Mg PO DAILY Review of Systems Except as stated in HPI: all other systems reviewed are Neg Physical Exam Narrative GENERAL: Frail female SKIN: Focused skin assessment warm and dry. HEAD: Atraumatic. Normocephalic. EYES: Pupils equal and round. No injection or drainage. ENT: Moist mucous membranes NECK: Trachea midline. CARDIOVASCULAR: Regular rate and rhythm. No murmur appreciated. RESPIRATORY: Clear to auscultation. Breath sounds equal bilaterally. GASTROINTESTINAL: Abdomen soft, non-tender, nondistended. 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 No obvious cranial nerve deficits. Moving all extremities. PSYCHIATRIC: Appropriate mood and affect; insight and judgment normal. Data Data Last Documented VS Vital Signs Date Time Temp Pulse Resp B/P Pulse Ox O2 Delivery O2 Flow Rate FiO2 07/14/16 15:51 98.2 89 16 111/59 98 MDM Medical Decision Making Medical Screen Exam Complete: Yes Emergency Medical Condition: Yes Interpretation(s) afebrile, no tachycardic, normotensive Differential Diagnosis Rheumatoid arthritis, chronic pain Narrative Course This is a 66-year-old female who presents to the emergency department with a history of rheumatoid arthritis. She reports that her joint pain is flaring up. She is otherwise stable appearing. Patient will be given an injection of IM Toradol. She doesn't want any steroids because she says they make her worse. She'll be discharged home. Diagnosis Primary Impression: Rheumatoid arthritis flare Patient Instructions: General Instructions Additional Instructions: If you develop severe chest pain, shortness of breath, sweating, lightheadedness , dizziness or difficulty breathing return to the emergency department immediately. Followup with your primary care physician in 2-3 days if your symptoms are not resolved. Med/Other Pt SpecificInfo: No Change to Meds Disposition: 01 DISCHARGE HOME Condition: Stable Alea Tuttle MD Jul 14, 2016 16:17
[2016-07-14] MEDS ORDERED: KETOROLAC TROMETHAMINE 60 MG/2 ML (IM) VIAL IM ONE (16:30)
[2016-07-14] MEDS ORDERED: methylPREDNISolone SOD SUCC 125 MG/2 ML VIAL IM SCH (17:00)
[2016-07-14] MEDS ORDERED: methylPREDNISolone SOD SUCC 125 MG/2 ML VIAL IM ONE (17:30)
[2016-07-14 17:42] VITALS: BP 104/63; PULSE 81; RESP 17; O2SAT 100
== END 2016-07-14 17:52 | disposition home or self-care (01) ==
LOC: NEPC 15:49
DX: M06.9 Rheumatoid arthritis, unspecified (principal); H91.90 Unspecified hearing loss, unspecified ear; Z72.0 Tobacco use; Z87.39 Personal history of other diseases of the musculoskeletal system and connective tissue; Z86.2 Personal history of diseases of the blood and blood-forming organs and certain disorders involving the immune mechanism; Z86.59 Personal history of other mental and behavioral disorders; Z86.79 Personal history of other diseases of the circulatory system; Z85.41 Personal history of malignant neoplasm of cervix uteri; Z86.19 Personal history of other infectious and parasitic diseases
CPT/HCPCS: 96372; 99283; J1885; J2930

== ENCOUNTER 2016-07-25 13:59 | Emergency (ER) | payer MEDICARE ==
[~2016-07-25] VITALS: Ht 162.6 cm; Wt 62.2 kg
[~2016-07-25 13:59] MED LIST changes: -BEDSIDE COMMODE1 MI1; -DILA4TAB2 PO; -ENOX40P SQ; -SOMI25TA PO; -XANA2TAB2 PO
[2016-07-25 14:08] VITALS: BP 109/58; PULSE 84; RESP 20; TEMP 98.7; O2SAT 98
--- NOTE | 2016-07-25 14:56 | PD ---
HPI Chief Complaint: Pain: Acute or Chronic Time Seen by Provider: 14:46 Travel History International Travel<30 days: No Contact w/Intl Traveler<30days: No Traveled to known affect area: No History of Present Illness HPI 66-year-old female with history of rheumatoid arthritis, not currently on any control medications, presents to the ER today because she states that she has had several months history of joint pains, and there are good days and bad days but it was worse today. She states that most of the pain is in her hands and arms and she has difficulty walking because of joint pains in her hips and legs as well. She is here because she just wants Toradol and Solu-Medrol IM. She states that has helped her in the past. She has been taking Naprosyn daily. She is not currently following up with any physician. However, she states that she is going to go see a holistic healed or tomorrow and wants me to give the medications that she feels a little bit better so that they will take her on as a patient. Modifying Factors: None Associated Signs & Symptoms: Request for IM Toradol and Solu-Medrol, joint pains Risk Factors: Rheumatoid arthritis PFSH Past Medical History Arthritis: Yes (RHEUMATOID & OSTEOARTHRITIS) Autoimmune Disease: Yes (RHEUMATOID ARTHRITIS) Bipolar Disorder: Yes Anxiety: Yes Depression: Yes Heart Rhythm Problems: Yes (MURMUR, PALPATATIONS) Cancer: Yes (CERVICAL CANCER) Cardiovascular Problems: No Chest Pain: No Cerebrovascular Accident: No Diabetes: No Diminished Hearing: Yes ([place]) Endocrine: No Gastrointestinal Disorders: Yes (GASTRIC ULCER IN PAST) Headaches: No Hepatitis: Yes (Hep C) Hiatal Hernia: No Immune Disorder: Yes (RHEUMATOID) Implanted Vascular Access Dvce: No Musculoskeletal: Yes (FX RIGHT ANKLE, LEFT KNEE PAIN, RHEUMATOID ARTHRITIS) Neurologic: No Psychiatric: Yes (BIPOLAR, ANXIETY, HX PANIC ATTACKS) Reproductive: Yes Migraines: No Seizures: No Thyroid Disease: No Ulcer: Yes ("bled out" in '03) PNEUMOCCOCAL Vaccine (Year): 2 Menopausal: Yes : 3 Para: 3 Miscarriage: 0 : 0 Ectopic : No Ovarian Cysts: No Tubal Ligation: No Past Surgical History Abdominal Surgery: No AICD: No Appendectomy: Yes Body Medical Devices: VINOD RIGHT FEMUR Cardiac Surgery: No Section: No Ear Surgery: No Eye Surgery: Yes ( CHILD) Genitourinary Surgery: No Gynecologic Surgery: Yes (CERVICAL CONE PROCEDURE) Hysterectomy: Yes (H/O CERVICAL CANCER) Joint Replacement: Yes (TOTAL RIGHT KNEE) Neurologic Surgery: No Oral Surgery: No Pacemaker: No Thoracic Surgery: No Other Surgery: Yes (R KNEE REPLACEMENT,PROSTHETIC L ELBOW) Social History Alcohol Use: No Tobacco Use: Yes (2 CIGARETTES DAILY ) Substance Use: No Allergies-Medications (Allergen,Severity, Reaction): Coded Allergies: Buspar (Verified Allergy, Severe, INCREASES ANXIETY, 07/14/16) Codeine (Verified Allergy, Severe, rash and swelling; hives, 07/14/16) PT HAS TAKEN PERCOCET BEFORE WITHOUT ANY PROBLEM PER RN 08/12/06 Sulfa (Verified Allergy, Severe, CHILLS, FEVER, 07/14/16) Ultram (Verified Allergy, Severe, Dizziness, 07/14/16) Talwin (Verified Allergy, Unknown, UNKNOWN, 07/14/16) Lortab (Verified Adverse Reaction, Intermediate, DIZZY, NAUSEA, 07/14/16) Reported Meds & Prescriptions Reported Meds & Active Scripts Active Walker/Adult/Folding (Device) 1 Mis Mis 1 Ea .ROUTE DIRECTED Reported Gabapentin 300 Mg Cap 2 Tab PO HS Gabapentin 300 Mg Cap 2 Tab PO AC LUNCH Gabapentin 300 Mg Cap 3 Tab PO DAILY Lamictal (Lamotrigine) 100 Mg Tab 100 Mg PO DAILY Review of Systems Except as stated in HPI: all other systems reviewed are Neg Physical Exam Narrative GENERAL: Well-developed elderly white female patient currently none acute distress but she is unable to move herself from wheelchair to bed without pain and distress. Awake and oriented 3. SKIN: Focused skin assessment warm/dry. HEAD: Atraumatic. Normocephalic. EYES: Pupils equal and round. No scleral icterus. No injection or drainage. ENT: No nasal bleeding or discharge. Mucous membranes pink and moist. NECK: Trachea midline. No JVD. CARDIOVASCULAR: Regular rate and rhythm. No murmur appreciated. RESPIRATORY: No accessory muscle use. Clear to auscultation. Breath sounds equal bilaterally. GASTROINTESTINAL: Abdomen soft, non-tender, nondistended. Hepatic and splenic margins not palpable. MUSCULOSKELETAL: No obvious deformities. No clubbing. No cyanosis. No edema. NEUROLOGICAL: Awake and alert. No obvious cranial nerve deficits. Motor grossly within normal limits. Normal speech. PSYCHIATRIC: Appropriate mood and affect; insight and judgment normal. Data Data Last Documented VS Vital Signs Date Time Temp Pulse Resp B/P Pulse Ox O2 Delivery O2 Flow Rate FiO2 07/25/16 14:08 98.7 84 20 109/58 98 Room Air Orders Basic Metabolic Panel (Bmp) (07/25/16 14:46) Methylprednisolone So Succ Inj (Solumedr (07/25/16 15:00) Methylprednisolone So Succ Inj (Solumedr (07/25/16 15:00) Ketorolac Inj (Toradol Inj) (07/25/16 16:00) Labs Laboratory Tests Test 07/25/16 15:00 Sodium Level 138 MEQ/L Potassium Level 4.1 MEQ/L Chloride Level 102 MEQ/L Carbon Dioxide Level 27.9 MEQ/L Anion Gap 8 MEQ/L Blood Urea Nitrogen 18 MG/DL Creatinine 0.56 MG/DL Estimat Glomerular Filtration 109 ML/MIN Rate Random Glucose 90 MG/DL Calcium Level 9.2 MG/DL MDM Medical Decision Making Medical Screen Exam Complete: Yes Emergency Medical Condition: Yes Medical Record Reviewed: Yes Differential Diagnosis Rheumatoid arthritis flare/request for medications Narrative Course Metabolic panel was done to rule out renal issues considering patient has been on Naprosyn for quite a long time. It did not show any significant renal issues or metabolic issues. At this point, patient had been given Toradol IM and Solu-Medrol IM at her own request. She does not want IV medications at this time. She wants minimal workup to be done at this time. She states that she would prefer to follow-up on the outside with her own physicians. It appears that she has a rheumatoid arthritis flare. My plan would be to give her Medrol Dosepak as well to help with the flare. She states she has Naprosyn at home from her primary care physician and does not want any further medications. She should return for any worsening in symptoms, fevers, or new symptoms as needed. The plan has been discussed with the patient and she states understanding. Diagnosis Primary Impression: Rheumatoid arthritis flare Med/Other Pt SpecificInfo: Prescription(s) given Scripts Methylprednisolone Dosepak (Medrol Dosepak)4 Mg Dspk4 Mg PO DIRECTED #1 DSPK Ref 0 Per Pharmacist direction Prov:Gio Chavez MD 5/7/17 Disposition: 01 DISCHARGE HOME Condition: Stable Soontharothai,Rewadee MD July 25, 2016 14:56
[2016-07-25] MEDS ORDERED: methylPREDNISolone SOD SUCC 125 MG/2 ML VIAL IM ONE (15:00)
[2016-07-25] MEDS ORDERED: methylPREDNISolone SOD SUCC 125 MG/2 ML VIAL IV PUSH ONE (15:00)
[2016-07-25 15:49] LABS: BICARBONATE 27.9 MEQ/L (21.0-32.0); POTASSIUM 4.1 MEQ/L (3.5-5.1)
[2016-07-25] MEDS ORDERED: MEDR4PAK PO (15:58)
[2016-07-25] MEDS ORDERED: KETOROLAC TROMETHAMINE 60 MG/2 ML (IM) VIAL IM ONE (16:00)
== END 2016-07-25 16:34 | disposition home or self-care (01) ==
LOC: NEPD 13:59
DX: M06.9 Rheumatoid arthritis, unspecified (principal)
CPT/HCPCS: 80048; 96372; 99283; J1885; J2930

== ENCOUNTER 2016-09-09 14:07 | Emergency (ER) | payer MEDICARE ==
[~2016-09-09] VITALS: Ht 160 cm; Wt 65.0 kg
[~2016-09-09 14:07] MED LIST changes: +MEDR4PAK PO
[2016-09-09 14:10] VITALS: BP 105/56; PULSE 83; RESP 18; TEMP 98.5; O2SAT 98
--- NOTE | 2016-09-09 15:08 | PD ---
HPI Chief Complaint: Pain: Acute or Chronic Time Seen by Provider: 15:06 Travel History International Travel<30 days: No Contact w/Intl Traveler<30days: No Traveled to known affect area: No History of Present Illness HPI 66-year-old female presents to the emergency department stating that she is having a flareup of her rheumatoid arthritis pain. Pain is mostly in her hands , but also is in her bilateral shoulders. She states she has been having to do a lot of work that she does not typically do, causing the flareup. The patient states that the apartment she isn't has bedbugs and she's been having to spray the chemicals to get rid the bedbugs. Patient states this has caused her to have a flare up of her arthritis. She states that she takes holistic medications. Patient is requesting an injection of Toradol and a steroid for her pain. She is also requesting injection of a muscle relaxant for her back pain that is chronic as well. Patient states she does not need or want any narcotics. Patient denies any other medical problems. She is not currently taking any prescribed medications. She denies any fevers or chills. No chest pain or shortness of breath. No abdominal pain. No nausea, vomiting, diarrhea. PFSH Past Medical History Arthritis: Yes (RHEUMATOID & OSTEOARTHRITIS) Autoimmune Disease: Yes (RHEUMATOID ARTHRITIS) Bipolar Disorder: Yes Anxiety: Yes Depression: Yes Heart Rhythm Problems: Yes (MURMUR, PALPATATIONS) Cancer: Yes (CERVICAL CANCER) Cardiovascular Problems: No Chest Pain: No Cerebrovascular Accident: No Diabetes: No Diminished Hearing: Yes ([place]) Endocrine: No Gastrointestinal Disorders: Yes (GASTRIC ULCER IN PAST) Headaches: No Hepatitis: Yes (Hep C) Hiatal Hernia: No Immune Disorder: Yes (RHEUMATOID) Implanted Vascular Access Dvce: No Musculoskeletal: Yes (FX RIGHT ANKLE, LEFT KNEE PAIN, RHEUMATOID ARTHRITIS) Neurologic: No Psychiatric: Yes (BIPOLAR, ANXIETY, HX PANIC ATTACKS) Reproductive: Yes Respiratory: Yes (COPD) Migraines: No Seizures: No Thyroid Disease: No Ulcer: Yes ("bled out" in '03) PNEUMOCCOCAL Vaccine (Year): 2 Menopausal: Yes : 3 Para: 3 Miscarriage: 0 : 0 Ectopic : No Ovarian Cysts: No Tubal Ligation: No Past Surgical History Abdominal Surgery: No AICD: No Appendectomy: Yes Body Medical Devices: VINOD RIGHT FEMUR Cardiac Surgery: No Section: No Ear Surgery: No Eye Surgery: Yes ( CHILD) Genitourinary Surgery: No Gynecologic Surgery: Yes (CERVICAL CONE PROCEDURE) Hysterectomy: Yes (H/O CERVICAL CANCER) Joint Replacement: Yes (TOTAL RIGHT KNEE) Neurologic Surgery: No Oral Surgery: No Pacemaker: No Thoracic Surgery: No Other Surgery: Yes (R KNEE REPLACEMENT,PROSTHETIC L ELBOW) Social History Alcohol Use: No Tobacco Use: Yes (2 CIGARETTES DAILY ) Substance Use: No Allergies-Medications (Allergen,Severity, Reaction): Coded Allergies: Buspar (Verified Allergy, Severe, INCREASES ANXIETY, 09/09/16) Codeine (Verified Allergy, Severe, rash and swelling; hives, 09/09/16) PT HAS TAKEN PERCOCET BEFORE WITHOUT ANY PROBLEM PER RN 08/12/06 Sulfa (Verified Allergy, Severe, CHILLS, FEVER, 09/09/16) Ultram (Verified Allergy, Severe, Dizziness, 09/09/16) Talwin (Verified Allergy, Unknown, UNKNOWN, 09/09/16) Lortab (Verified Adverse Reaction, Intermediate, DIZZY, NAUSEA, 09/09/16) Reported Meds & Prescriptions Reported Meds & Active Scripts Active Medrol Dosepak (Methylprednisolone) 4 Mg Dspk 4 Mg PO DIRECTED Per Pharmacist direction Reported Gabapentin 300 Mg Cap 2 Tab PO HS Gabapentin 300 Mg Cap 2 Tab PO AC LUNCH Gabapentin 300 Mg Cap 3 Tab PO DAILY Lamictal (Lamotrigine) 100 Mg Tab 100 Mg PO DAILY Review of Systems Except as stated in HPI: all other systems reviewed are Neg Physical Exam Narrative GENERAL: Well-nourished, well-developed female patient, ambulatory. Afebrile. SKIN: Focused skin assessment warm/dry. HEAD: Normocephalic. Atraumatic. EYES: No scleral icterus. No injection or drainage. NECK: Supple, trachea midline. No JVD or lymphadenopathy. CARDIOVASCULAR: Regular rate and rhythm without murmurs, gallops, or rubs. RESPIRATORY: Breath sounds equal bilaterally. No accessory muscle use. Lungs sounds are clear to auscultation. GASTROINTESTINAL: Abdomen soft, non-tender, nondistended. MUSCULOSKELETAL: No cyanosis, or edema. BACK: Nontender without obvious deformity. No CVA tenderness. Data Data Last Documented VS Vital Signs Date Time Temp Pulse Resp B/P Pulse Ox O2 Delivery O2 Flow Rate FiO2 09/09/16 14:10 98.5 83 18 105/56 98 Room Air MDM Medical Decision Making Medical Screen Exam Complete: Yes Emergency Medical Condition: Yes Medical Record Reviewed: Yes Differential Diagnosis Rheumatoid arthritis flareup versus chronic pain versus sprain Narrative Course 66-year-old female presents to the emergency department requesting injection of Toradol, steroid, muscle relaxant for chronic back pain and chronic rheumatoid arthritis pain. She states that her pain has worsened due to having to spray for bedbugs. Patient denies any other complaints and appears well on exam. Patient does not want any further evaluation at this time. Patient is given Toradol 60 mg IM, Solu-Medrol 125 mg IM, Norflex 60 mg IM. She will be discharged prescription for a Medrol Dosepak and Robaxin for home. Patient is to follow-up with her primary care physician. She verbalizes agreement and understanding. The patient was discharged in stable condition with instructions, including return instructions and follow up instructions. Diagnosis Primary Impression: Rheumatoid arthritis flare Referrals: Primary Care Physician call for appointment Patient Instructions: General Instructions, Rheumatoid Arthritis (ED) Additional Instructions: Take Medrol Dosepak as directed. Start this tomorrow. Take Robaxin as directed as needed. Follow-up with your primary care physician. Return to the emergency department for any acute worsening of symptoms. Med/Other Pt SpecificInfo: Prescription(s) given Scripts Methocarbamol (Robaxin)750 Mg [id number] Mg PO TID PRN (MUSCLE SPASM) #21 TAB Ref 0 Prov:Amber Dixon 09/09/16 Methylprednisolone Dosepak (Medrol Dosepak)4 Mg Dspk4 Mg PO DIRECTED #1 DSPK Ref 0 Per Pharmacist direction Prov:Amber Dixon 09/09/16 Disposition: 01 DISCHARGE HOME Condition: Stable Amber Dixon Sep 09, 2016 15:08
[2016-09-09] MEDS ORDERED: MEDR4PAK PO (15:12)
[2016-09-09] MEDS ORDERED: ROBA750T PO (15:12)
[2016-09-09] MEDS ORDERED: ORPHENADRINE INJ 60 MG/2 ML AMP IM ONE (15:15)
[2016-09-09] MEDS ORDERED: KETOROLAC TROMETHAMINE 60 MG/2 ML (IM) VIAL IM ONE (15:15)
[2016-09-09] MEDS ORDERED: methylPREDNISolone SOD SUCC 125 MG/2 ML VIAL IM ONE (15:15)
[2016-09-09] MEDS ORDERED: KLON2TAB PO (15:44)
[2016-09-09] MEDS ORDERED: DIPH25CA PO (15:44)
[2016-09-09] MEDS ORDERED: TRYP500T PO (15:44)
== END 2016-09-09 16:11 | disposition home or self-care (01) ==
LOC: NEPD 14:07
DX: M06.9 Rheumatoid arthritis, unspecified (principal); R01.1 Cardiac murmur, unspecified; B19.20 Unspecified viral hepatitis C without hepatic coma; J44.9 Chronic obstructive pulmonary disease, unspecified; F17.210 Nicotine dependence, cigarettes, uncomplicated
CPT/HCPCS: 96372; 99284; J1885; J2360; J2930

== ENCOUNTER 2016-09-13 10:26 | Emergency (ER) | payer MEDICARE ==
[~2016-09-13] VITALS: Ht 162.6 cm; Wt 60.0 kg
[~2016-09-13 10:26] MED LIST changes: +DIPH25CA PO; +KLON2TAB PO; -MEDR4PAK PO; +ROBA750T PO; +TRYP500T PO; -WALKER/ADULT/FO1 MIS
[2016-09-13 10:36] VITALS: BP 109/58; PULSE 77; RESP 16; TEMP 97.9; O2SAT 98
[2016-09-13 11:00] VITALS: O2SAT 100
[2016-09-13] MEDS ORDERED: SODIUM CHLOR 0.9% 1000 ML INJ 1,000 ML IV ONE (11:31)
[2016-09-13] MEDS ORDERED: SODIUM CHLORIDE 0.9% FLUSH 10 ML FLUSH IVF PRN (11:45)
--- NOTE | 2016-09-13 12:11 | RADRPT ---
EXAM DATE/TIME: 09/13/2016 11:36 [facility] COMPARISON: CHEST PA & LAT, April 12, 2016, 13:12. INDICATIONS : Shortness of breath today. MEDICAL HISTORY : Chronic obstructive pulmonary disease. Rheumatoid arthritis. Cervicalcancer. Heart murmur. SURGICAL HISTORY : None. ENCOUNTER: Initial ACUITY: 1 day PAIN SCORE: 0/10 LOCATION: Bilateral chest FINDINGS: A single view of the chest demonstrates the lungs to be symmetrically aerated without evidence of mas s, infiltrate or effusion. The cardiomediastinal contours are unremarkable. Osseous structures are intact. CONCLUSION: No acute disease. Darinel Uribe MD on September 13, 2016 at 12:08 Board Certified Radiologist. This report was verified electronically.
[2016-09-13 12:13] LABS: AUTOMATED NEUTROPHIL # 5.5 TH/MM3 (1.8-7.7); BASOPHIL # 0.1 TH/MM3 (0-0.2); BASOPHIL % 1.2 % (0.0-2.0); EOSINOPHIL # 0.4 TH/MM3 (0-0.4); EOSINOPHIL % 4.7 % (0.0-4.0); HEMATOCRIT 27.2 % (35.0-46.0); HEMO FLAGS DIFF FINAL; LYMPH % 20.4 % (9.0-44.0); LYMPHOCYTE # 1.7 TH/MM3 (1.0-4.8); MEAN CELL VOLUME 69.9 FL (80.0-100.0); MEAN CORPUSCULAR HEMOGLOBIN 22.3 PG (27.0-34.0); MEAN CORPUSCULAR HGB CONC 31.9 % (32.0-36.0); MONO % 7.2 % (0.0-8.0); NEUT % 66.5 % (16.0-70.0); PLATELET COUNT 533 TH/MM3 (150-450); RED BLOOD COUNT 3.89 MIL/MM3 (4.00-5.30); RED CELL DISTRIBUTION WIDTH 20.7 % (11.6-17.2); WHITE BLOOD COUNT 8.3 TH/MM3 (4.0-11.0)
[2016-09-13 12:15] LABS: BACTERIA, URINE RARE /hpf; BLOOD, URINE NEG (NEG); COMMENT (UR) CULT NOT INDICATED; CULTURE IF INDICATED CULT NOT INDICATED; GLUCOSE,URINE NEG (NEG); KETONE, URINE NEG (NEG); NITRITE,URINE NEG (NEG); SQUAMOUS EPITHELIAL CELL URINE <1 /hpf (0-5); URINE COLOR LIGHT-YELLOW (YELLW/STRAW)
[2016-09-13 12:30] LABS: BICARBONATE 25.8 MEQ/L (21.0-32.0); POTASSIUM 3.9 MEQ/L (3.5-5.1)
--- NOTE | 2016-09-13 12:52 | PD ---
HPI Chief Complaint: Syncope/Near-Syncope Time Seen by Provider: 11:10 Travel History International Travel<30 days: No Contact w/Intl Traveler<30days: No Traveled to known affect area: No History of Present Illness HPI Patient is a 66-year-old female who presents to emergency room for evaluation of near syncopal episode. Patient reports that she has bedbugs in her complex as they keep having bed bug infestations in her complex. Reports that for the past few days, she has been using bedbug powder on all her furniture. Patient reports that she breathed in some of the powder which she placed on her couch and felt as if she was going to pass out. Patient reports that she showered and changed her clothes and called 911. Patient reports that she is feeling much better at this time. Patient denies any chest pain or shortness of breath at this time. Patient denies any dizziness or headache at this time as well. PFSH Past Medical History Arthritis: Yes Autoimmune Disease: Yes (RHEUMATOID ARTHRITIS) Bipolar Disorder: Yes Anxiety: Yes Depression: Yes Heart Rhythm Problems: Yes (MURMUR, PALPATATIONS) Cancer: Yes (CERVICAL CANCER) Cardiovascular Problems: No Chest Pain: No Cerebrovascular Accident: No Diabetes: No Diminished Hearing: Yes ([place]) Endocrine: No Gastrointestinal Disorders: Yes (GASTRIC ULCER IN PAST) Headaches: No Hepatitis: Yes (Hep C) Hiatal Hernia: No Immune Disorder: Yes (RHEUMATOID) Implanted Vascular Access Dvce: No Musculoskeletal: Yes (FX RIGHT ANKLE, LEFT KNEE PAIN, RHEUMATOID ARTHRITIS) Neurologic: No Psychiatric: Yes (BIPOLAR, ANXIETY, HX PANIC ATTACKS) Reproductive: Yes Respiratory: Yes (COPD) Migraines: No Seizures: No Thyroid Disease: No Ulcer: Yes ("bled out" in '03) PNEUMOCCOCAL Vaccine (Year): 2 ?: Not Menopausal: Yes : 3 Para: 3 Miscarriage: 0 : 0 Ectopic : No Ovarian Cysts: No Tubal Ligation: Yes Past Surgical History Abdominal Surgery: No AICD: No Appendectomy: Yes Body Medical Devices: VINOD RIGHT FEMUR Cardiac Surgery: No Section: No Ear Surgery: No Eye Surgery: Yes ( CHILD) Genitourinary Surgery: No Gynecologic Surgery: Yes (CERVICAL CONE PROCEDURE) Hysterectomy: Yes (H/O CERVICAL CANCER) Joint Replacement: Yes (rt knee lt knee Lt elbow) Neurologic Surgery: No Oral Surgery: No Pacemaker: No Thoracic Surgery: No Other Surgery: Yes (R KNEE REPLACEMENT,PROSTHETIC L ELBOW) Social History Alcohol Use: No Tobacco Use: Yes Substance Use: No Allergies-Medications (Allergen,Severity, Reaction): Coded Allergies: Buspar (Verified Allergy, Severe, INCREASES ANXIETY, 09/09/16) Codeine (Verified Allergy, Severe, rash and swelling; hives, 09/09/16) PT HAS TAKEN PERCOCET BEFORE WITHOUT ANY PROBLEM PER RN 08/12/06 Sulfa (Verified Allergy, Severe, CHILLS, FEVER, 09/09/16) Ultram (Verified Allergy, Severe, Dizziness, 09/09/16) Talwin (Verified Allergy, Unknown, UNKNOWN, 09/09/16) Lortab (Verified Adverse Reaction, Intermediate, DIZZY, NAUSEA, 09/09/16) Reported Meds & Prescriptions Reported Meds & Active Scripts Active Robaxin (Methocarbamol) 750 Mg Tab 750 Mg PO TID PRN Reported l-Tryptophan (Tryptophan) 500 Mg Tab 1,500 Mg PO HS Diphenhydramine (Diphenhydramine HCl) 25 Mg Cap 25 Mg PO HS PRN Klonopin (Clonazepam) 2 Mg Tab 2 Mg PO HS Gabapentin 300 Mg Cap 600 Mg PO HS Gabapentin 300 Mg Cap 600 Mg PO AC LUNCH Gabapentin 300 Mg Cap 900 Mg PO DAILY Lamictal (Lamotrigine) 100 Mg Tab 100 Mg PO DAILY Review of Systems General / Constitutional: No: Fever Eyes: No: Visual changes HENT: No: Headaches Cardiovascular: No: Chest Pain or Discomfort Respiratory: No: Shortness of Breath Gastrointestinal: No: Abdominal Pain Genitourinary: No: Dysuria Musculoskeletal: No: Pain Skin: No Rash Neurologic: Positive: Syncope (near syncope), No: Weakness Psychiatric: No: Depression Endocrine: No: Polydipsia Hematologic/Lymphatic: No: Easy Bruising Physical Exam Narrative GENERAL: NAD SKIN: Focused skin assessment warm/dry. HEAD: Atraumatic. Normocephalic. EYES: Pupils equal and round. No scleral icterus. No injection or drainage. ENT: No nasal bleeding or discharge. Mucous membranes pink and moist. NECK: Trachea midline. No JVD. CARDIOVASCULAR: Regular rate and rhythm. No murmur appreciated. RESPIRATORY: No accessory muscle use. Clear to auscultation. Breath sounds equal bilaterally. GASTROINTESTINAL: Abdomen soft, non-tender, nondistended. Hepatic and splenic margins not palpable. MUSCULOSKELETAL: No obvious deformities. No clubbing. No cyanosis. No edema. NEUROLOGICAL: Awake and alert. No obvious cranial nerve deficits. Motor grossly within normal limits. Normal speech. PSYCHIATRIC: Appropriate mood and affect; insight and judgment normal. Data Data Last Documented VS Vital Signs Date Time Temp Pulse Resp B/P Pulse Ox O2 Delivery O2 Flow Rate FiO2 09/13/16 13:09 74 16 101/50 100 Room Air 09/13/16 10:36 97.9 Orders Electrocardiogram (09/13/16 11:31) Basic Metabolic Panel (Bmp) (09/13/16 11:31) Complete Blood Count With Diff (09/13/16 11:31) Urinalysis - C+S If Indicated (09/13/16 11:31) Chest, Single Ap (09/13/16 11:31) Ecg Monitoring (09/13/16 11:31) Iv Access Insert/Monitor (09/13/16 11:31) Oximetry (09/13/16 11:31) Sodium Chloride 0.9% Flush (Ns Flush) (09/13/16 11:45) Sodium Chlor 0.9% 1000 Ml Inj (Ns 1000 M (09/13/16 11:31) Labs Laboratory Tests Test 09/13/16 09/13/16 11:15 11:30 White Blood Count 8.3 TH/MM3 Red Blood Count 3.89 MIL/MM3 Hemoglobin 8.7 GM/DL Hematocrit 27.2 % Mean Corpuscular Volume 69.9 FL Mean Corpuscular Hemoglobin 22.3 PG Mean Corpuscular Hemoglobin 31.9 % Concent Red Cell Distribution Width 20.7 % Platelet Count 533 TH/MM3 Mean Platelet Volume 7.6 FL Neutrophils (%) (Auto) 66.5 % Lymphocytes (%) (Auto) 20.4 % Monocytes (%) (Auto) 7.2 % Eosinophils (%) (Auto) 4.7 % Basophils (%) (Auto) 1.2 % Neutrophils # (Auto) 5.5 TH/MM3 Lymphocytes # (Auto) 1.7 TH/MM3 Monocytes # (Auto) 0.6 TH/MM3 Eosinophils # (Auto) 0.4 TH/MM3 Basophils # (Auto) 0.1 TH/MM3 CBC Comment DIFF FINAL Differential Comment Sodium Level 139 MEQ/L Potassium Level 3.9 MEQ/L Chloride Level 106 MEQ/L Carbon Dioxide Level 25.8 MEQ/L Anion Gap 7 MEQ/L Blood Urea Nitrogen 22 MG/DL Creatinine 0.61 MG/DL Estimat Glomerular Filtration 99 ML/MIN Rate Random Glucose 82 MG/DL Calcium Level 8.3 MG/DL Urine Color LIGHT-YELLOW Urine Turbidity CLEAR Urine pH 6.0 Urine Specific [place] 1.005 Urine Protein NEG mg/dL Urine Glucose (UA) NEG mg/dL Urine Ketones NEG mg/dL Urine Occult Blood NEG Urine Nitrite NEG Urine Bilirubin NEG Urine Urobilinogen LESS THAN 2.0 MG/DL Urine Leukocyte Esterase NEG Urine RBC LESS THAN 1 /hpf Urine WBC LESS THAN 1 /hpf Urine Squamous Epithelial <1 /hpf Cells Urine Bacteria RARE /hpf Microscopic Urinalysis Comment CULT NOT INDICATED MDM Medical Decision Making Medical Screen Exam Complete: Yes Emergency Medical Condition: Yes Interpretation(s) EKG at 1155: Normal sinus rhythm at 76 beats a minute, qt/qtc: 391/421, no acute st or t wave changes Vital Signs Date Time Temp Pulse Resp B/P Pulse Ox O2 Delivery O2 Flow Rate FiO2 09/13/16 10:41 16 96 Room Air 09/13/16 10:36 97.9 77 16 109/58 98 Laboratory Tests Test 09/13/16 09/13/16 11:15 11:30 White Blood Count 8.3 TH/MM3 (4.0-11.0) Red Blood Count 3.89 MIL/MM3 (4.00-5.30) Hemoglobin 8.7 GM/DL (11.6-15.3) Hematocrit 27.2 % (35.0-46.0) Mean Corpuscular Volume 69.9 FL (80.0-100.0) Mean Corpuscular Hemoglobin 22.3 PG (27.0-34.0) Mean Corpuscular Hemoglobin 31.9 % Concent (32.0-36.0) Red Cell Distribution Width 20.7 % (11.6-17.2) Platelet Count 533 TH/MM3 (150-450) Mean Platelet Volume 7.6 FL (7.0-11.0) Neutrophils (%) (Auto) 66.5 % (16.0-70.0) Lymphocytes (%) (Auto) 20.4 % (9.0-44.0) Monocytes (%) (Auto) 7.2 % (0.0-8.0) Eosinophils (%) (Auto) 4.7 % (0.0-4.0) Basophils (%) (Auto) 1.2 % (0.0-2.0) Neutrophils # (Auto) 5.5 TH/MM3 (1.8-7.7) Lymphocytes # (Auto) 1.7 TH/MM3 (1.0-4.8) Monocytes # (Auto) 0.6 TH/MM3 (0-0.9) Eosinophils # (Auto) 0.4 TH/MM3 (0-0.4) Basophils # (Auto) 0.1 TH/MM3 (0-0.2) CBC Comment DIFF FINAL Differential Comment Sodium Level 139 MEQ/L (136-145) Potassium Level 3.9 MEQ/L (3.5-5.1) Chloride Level 106 MEQ/L (98-107) Carbon Dioxide Level 25.8 MEQ/L (21.0-32.0) Anion Gap 7 MEQ/L (5-15) Blood Urea Nitrogen 22 MG/DL (7-18) Creatinine 0.61 MG/DL (0.50-1.00) Estimat Glomerular Filtration 99 ML/MIN (>89) Rate Random Glucose 82 MG/DL (74-106) Calcium Level 8.3 MG/DL (8.5-10.1) Urine Color LIGHT-YELLOW (YELLW/STRAW) Urine Turbidity CLEAR (CLEAR) Urine pH 6.0 (5.0-8.5) Urine Specific [place] 1.005 (1.002-1.035) Urine Protein NEG mg/dL (NEG-TRACE) Urine Glucose (UA) NEG mg/dL (NEG) Urine Ketones NEG mg/dL (NEG) Urine Occult Blood NEG (NEG) Urine Nitrite NEG (NEG) Urine Bilirubin NEG (NEG) Urine Urobilinogen LESS THAN 2.0 MG/DL (LESS THAN 2.0) Urine Leukocyte Esterase NEG (NEG) Urine RBC LESS THAN 1 /hpf (0-3) Urine WBC LESS THAN 1 /hpf (0-5) Urine Squamous Epithelial <1 /hpf (0-5) Cells Urine Bacteria RARE /hpf (NONE) Microscopic Urinalysis Comment CULT NOT INDICATED Last Impressions Chest X-Ray 09/13/16 1131 Signed Impressions: Service Date/Time: Tuesday, September 13, 2016 11:36 - CONCLUSION: No acute disease. Darinel Uribe MD Differential Diagnosis Near syncope could be secondary to ACS, electrolyte abnormality, arrhythmia, reaction to bed bug powder, infection Narrative Course Patient is 66-year-old female who presents to emergency room with complaints of near syncopal episode after and some bedbug powder this morning. Patient with no chest pain or sob at this time. Reports "i feel better after I showered and changed my clothes." Patient reports increased frustration over her bed bugs at her complex. Patient was placed on a pvc monitor upon arrival to the emergency room. EKG was obtained. Laboratory Tests Test 09/13/16 09/13/16 11:15 11:30 White Blood Count 8.3 TH/MM3 (4.0-11.0) Red Blood Count 3.89 MIL/MM3 (4.00-5.30) Hemoglobin 8.7 GM/DL (11.6-15.3) Hematocrit 27.2 % (35.0-46.0) Mean Corpuscular Volume 69.9 FL (80.0-100.0) Mean Corpuscular Hemoglobin 22.3 PG (27.0-34.0) Mean Corpuscular Hemoglobin 31.9 % Concent (32.0-36.0) Red Cell Distribution Width 20.7 % (11.6-17.2) Platelet Count 533 TH/MM3 (150-450) Mean Platelet Volume 7.6 FL (7.0-11.0) Neutrophils (%) (Auto) 66.5 % (16.0-70.0) Lymphocytes (%) (Auto) 20.4 % (9.0-44.0) Monocytes (%) (Auto) 7.2 % (0.0-8.0) Eosinophils (%) (Auto) 4.7 % (0.0-4.0) Basophils (%) (Auto) 1.2 % (0.0-2.0) Neutrophils # (Auto) 5.5 TH/MM3 (1.8-7.7) Lymphocytes # (Auto) 1.7 TH/MM3 (1.0-4.8) Monocytes # (Auto) 0.6 TH/MM3 (0-0.9) Eosinophils # (Auto) 0.4 TH/MM3 (0-0.4) Basophils # (Auto) 0.1 TH/MM3 (0-0.2) CBC Comment DIFF FINAL Differential Comment Sodium Level 139 MEQ/L (136-145) Potassium Level 3.9 MEQ/L (3.5-5.1) Chloride Level 106 MEQ/L (98-107) Carbon Dioxide Level 25.8 MEQ/L (21.0-32.0) Anion Gap 7 MEQ/L (5-15) Blood Urea Nitrogen 22 MG/DL (7-18) Creatinine 0.61 MG/DL (0.50-1.00) Estimat Glomerular Filtration 99 ML/MIN (>89) Rate Random Glucose 82 MG/DL (74-106) Calcium Level 8.3 MG/DL (8.5-10.1) Urine Color LIGHT-YELLOW (YELLW/STRAW) Urine Turbidity CLEAR (CLEAR) Urine pH 6.0 (5.0-8.5) Urine Specific [place] 1.005 (1.002-1.035) Urine Protein NEG mg/dL (NEG-TRACE) Urine Glucose (UA) NEG mg/dL (NEG) Urine Ketones NEG mg/dL (NEG) Urine Occult Blood NEG (NEG) Urine Nitrite NEG (NEG) Urine Bilirubin NEG (NEG) Urine Urobilinogen LESS THAN 2.0 MG/DL (LESS THAN 2.0) Urine Leukocyte Esterase NEG (NEG) Urine RBC LESS THAN 1 /hpf (0-3) Urine WBC LESS THAN 1 /hpf (0-5) Urine Squamous Epithelial <1 /hpf (0-5) Cells Urine Bacteria RARE /hpf (NONE) Microscopic Urinalysis Comment CULT NOT INDICATED Last Impressions Chest X-Ray 09/13/16 1131 Signed Impressions: Service Date/Time: Tuesday, September 13, 2016 11:36 - CONCLUSION: No acute disease. Darinel Uribe MD Laboratory reviewed, hemoglobin 8.7 which is at her baseline. EKG normal. Patient feeling much better. Plan to discharge patient with instructions to follow-up with a primary care doctor as outpatient. Signs and symptoms of when to return to the emergency room was reviewed with patient in detail. Diagnosis Primary Impression: Near syncope Additional Impression: Anemia Patient Instructions: General Instructions Additional Instructions: Please follow-up with your primary care doctor and 24-48 hours Return to the emergency room as needed or if symptoms return Please have your primary care doctor follow up with all your lab work for today Disposition: 01 DISCHARGE HOME Condition: Stable Paz Llanes DO Sep 13, 2016 12:52
[2016-09-13 13:09] VITALS: BP 101/50; PULSE 74; RESP 16; O2SAT 100
[2016-09-13 14:07] VITALS: BP 108/56
--- NOTE | 2016-09-14 17:09 | EKG ---
Date Performed: 09/13/2016 Time Performed: 11:55:24 PTAGE: 66 years EKG: Sinus rhythm NORMAL ECG PREVIOUS TRACING : 04/12/2016 12.02 Compared to prior tracing no significant change DOCTOR: Ankur Ac Interpretating Date/Time 09/14/2016 17:08:30
== END 2016-09-13 14:08 | disposition home or self-care (01) ==
LOC: NEPE 10:26
DX: R55 Syncope and collapse (principal); D64.9 Anemia, unspecified; M06.9 Rheumatoid arthritis, unspecified; F31.9 Bipolar disorder, unspecified; B19.20 Unspecified viral hepatitis C without hepatic coma; J44.9 Chronic obstructive pulmonary disease, unspecified; Z79.899 Other long term (current) drug therapy; Z88.5 Allergy status to narcotic agent; Z88.2 Allergy status to sulfonamides
CPT/HCPCS: 71010; 80048; 81001; 85025; 93005; 99285; J7030

== ENCOUNTER 2016-12-28 10:27 | Emergency (ER) | payer MEDICARE, MEDICAID ==
[~2016-12-28] VITALS: Ht 162.6 cm; Wt 60.0 kg
[2016-12-28 10:58] VITALS: BP 114/57; PULSE 75; RESP 20; TEMP 98.3; O2SAT 97
[2016-12-28 10:59] VITALS: BP 114/57; PULSE 78; RESP 20; TEMP 98.3; O2SAT 97
[2016-12-28] MEDS ORDERED: SODIUM CHLOR 0.9% 1000 ML INJ 1,000 ML IV ONE (12:23)
--- NOTE | 2016-12-28 12:29 | PD ---
HPI Chief Complaint: Head Injury Time Seen by Provider: 12:14 Travel History International Travel<30 days: No Contact w/Intl Traveler<30days: No Traveled to known affect area: No History of Present Illness HPI 66-year-old female presents to the emergency department for evaluation of dizziness, nausea, shortness of breath that started approximately 2 days ago. She does state that she fell 6 days ago. She tripped over a bag and did hit her head against a window sill. However, she has felt fine until 2 days ago. She states that her dizziness is worse with laying down. She does report history of vertigo, but states this feels different. No headache. No chest pain. However, she does state that she feel short of breath with exertion. She reports nausea, but no vomiting. No abdominal pain. No constipation or diarrhea. Patient denies any syncope, weakness. 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 She also has history of rheumatoid arthritis, bipolar disorder. Patient is ambulatory with a steady gait. PFSH Past Medical History Arthritis: Yes Autoimmune Disease: Yes (RHEUMATOID ARTHRITIS) Bipolar Disorder: Yes Anxiety: Yes Depression: Yes Heart Rhythm Problems: Yes (MURMUR, PALPATATIONS) Cancer: Yes (CERVICAL CANCER) Cardiovascular Problems: No Chest Pain: No Cerebrovascular Accident: No Diabetes: No Diminished Hearing: Yes ([place]) Endocrine: No Gastrointestinal Disorders: Yes (GASTRIC ULCER IN PAST) Headaches: No Hepatitis: Yes (Hep C) Hiatal Hernia: No Immune Disorder: Yes (RHEUMATOID) Implanted Vascular Access Dvce: No Musculoskeletal: Yes (FX RIGHT ANKLE, LEFT KNEE PAIN, RHEUMATOID ARTHRITIS) Neurologic: No Psychiatric: Yes (BIPOLAR, ANXIETY, HX PANIC ATTACKS) Reproductive: Yes Respiratory: Yes (COPD) Migraines: No Seizures: No Thyroid Disease: No Ulcer: Yes ("bled out" in '03) PNEUMOCCOCAL Vaccine (Year): 2 ?: Not Menopausal: Yes : 3 Para: 3 Miscarriage: 0 : 0 Ectopic : No Ovarian Cysts: No Tubal Ligation: Yes Past Surgical History Abdominal Surgery: No AICD: No Appendectomy: Yes Body Medical Devices: VINOD RIGHT FEMUR Cardiac Surgery: No Section: No Ear Surgery: No Eye Surgery: Yes ( CHILD) Genitourinary Surgery: No Gynecologic Surgery: Yes (CERVICAL CONE PROCEDURE) Hysterectomy: Yes (H/O CERVICAL CANCER) Joint Replacement: Yes (rt knee lt knee Lt elbow) Neurologic Surgery: No Oral Surgery: No Pacemaker: No Thoracic Surgery: No Other Surgery: Yes (R KNEE REPLACEMENT,PROSTHETIC L ELBOW) Social History Alcohol Use: No Tobacco Use: Yes Substance Use: No Allergies-Medications (Allergen,Severity, Reaction): Coded Allergies: Sulfa (Sulfonamide Antibiotics) (Unverified Allergy, Severe, CHILLS, FEVER , 11/02/16) buspirone (Unverified Allergy, Severe, INCREASES ANXIETY, 11/02/16) codeine (Unverified Allergy, Severe, rash and swelling; hives, 11/02/16) PT HAS TAKEN PERCOCET BEFORE WITHOUT ANY PROBLEM PER RN 08/12/06 tramadol (Unverified Allergy, Severe, Dizziness, 11/02/16) pentazocine (Unverified Allergy, Unknown, UNKNOWN, 11/02/16) acetaminophen (Unverified Adverse Reaction, Intermediate, DIZZY, NAUSEA, ) hydrocodone (Unverified Adverse Reaction, Intermediate, DIZZY, NAUSEA, ) Reported Meds & Prescriptions Reported Meds & Active Scripts Active Robaxin (Methocarbamol) 750 Mg Tab 750 Mg PO TID PRN Reported l-Tryptophan (Tryptophan) 500 Mg Tab 1,500 Mg PO HS Diphenhydramine (Diphenhydramine HCl) 25 Mg Cap 25 Mg PO HS PRN Klonopin (Clonazepam) 2 Mg Tab 2 Mg PO HS Gabapentin 300 Mg Cap 600 Mg PO HS Gabapentin 300 Mg Cap 600 Mg PO AC LUNCH Gabapentin 300 Mg Cap 900 Mg PO DAILY Lamictal (Lamotrigine) 100 Mg Tab 100 Mg PO DAILY Review of Systems Except as stated in HPI: all other systems reviewed are Neg Physical Exam Narrative GENERAL: Well-nourished, well-developed female patient, ambulatory with a steady gait. Afebrile. SKIN: Focused skin assessment warm/dry. HEAD: Normocephalic. Atraumatic. ENT: Mucosa pink and moist. No erythema or exudates. No uvular edema. No uvular , palatal, or tonsillar deviation. Airway patent. Nasal turbinates appear normal without nasal blood, purulent drainage or septal hematoma. Bilateral tympanic membranes are clear without erythema or perforation. EYES: No scleral icterus. No injection or drainage. NECK: Supple, trachea midline. No JVD or lymphadenopathy. CARDIOVASCULAR: Regular rate and rhythm without murmurs, gallops, or rubs. RESPIRATORY: Breath sounds equal bilaterally. No accessory muscle use. Lungs sounds are clear to auscultation. GASTROINTESTINAL: Abdomen soft, non-tender, nondistended. MUSCULOSKELETAL: No cyanosis, or edema. Bilateral upper and lower extremity strength 5/5. All extremities are neurovascularly intact. BACK: Nontender without obvious deformity. No CVA tenderness. NEUROLOGICAL: Awake and alert. Cranial nerves II through XII intact. Motor and sensory grossly within normal limits. Five out of 5 muscle strength in all muscle groups. Normal speech. Finger to nose is normal with the right hand. I am unable to test with the left hand due to left arm deformity. [id number] is normal bilaterally. Data Data Last Documented VS Vital Signs Date Time Temp Pulse Resp B/P (MAP) Pulse Ox O2 Delivery O2 Flow Rate FiO2 12/28/16 12:40 76 17 128/56 (80) 78 17 108/57 (74) 86 17 113/60 (77) 12/28/16 10:59 98.3 97 Room Air Orders Orders Electrocardiogram (12/28/16 12:23) Complete Blood Count With Diff (12/28/16 12:23) Comprehensive Metabolic Panel (12/28/16 12:23) Magnesium (Mg) (12/28/16 12:23) Ckmb (Isoenzyme) Profile (12/28/16 12:23) Troponin I (12/28/16 12:23) Urinalysis - C+S If Indicated (12/28/16 12:23) Chest, Single Ap (12/28/16 12:23) Ct Brain W/O Iv Contrast(Rout) (12/28/16 12:23) Ecg Monitoring (12/28/16 12:23) Iv Access Insert/Monitor (12/28/16 12:23) Oximetry (12/28/16 12:23) Meclizine (Antivert) (12/28/16 12:30) Ondansetron Inj (Zofran Inj) (12/28/16 12:30) Sodium Chloride 0.9% Flush (Ns Flush) (12/28/16 12:30) Sodium Chlor 0.9% 1000 Ml Inj (Ns 1000 M (12/28/16 12:23) Orthostatic Vital Signs (12/28/16 12:23) Labs Laboratory Tests Test 12/28/16 12:49 White Blood Count 9.8 TH/MM3 Red Blood Count 4.95 MIL/MM3 Hemoglobin 11.6 GM/DL Hematocrit 36.1 % Mean Corpuscular Volume 72.8 FL Mean Corpuscular Hemoglobin 23.4 PG Mean Corpuscular Hemoglobin Concent 32.1 % Red Cell Distribution Width 23.5 % Platelet Count 409 TH/MM3 Mean Platelet Volume 7.8 FL Neutrophils (%) (Auto) 65.2 % Lymphocytes (%) (Auto) 24.4 % Monocytes (%) (Auto) 6.7 % Eosinophils (%) (Auto) 2.5 % Basophils (%) (Auto) 1.2 % Neutrophils # (Auto) 6.4 TH/MM3 Lymphocytes # (Auto) 2.4 TH/MM3 Monocytes # (Auto) 0.7 TH/MM3 Eosinophils # (Auto) 0.2 TH/MM3 Basophils # (Auto) 0.1 TH/MM3 CBC Comment AUTO DIFF Differential Comment AUTO DIFF CONFIRMED Platelet Estimate NORMAL Platelet Morphology Comment NORMAL Urine Color YELLOW Urine Turbidity CLEAR Urine pH 6.5 Urine Specific [place] 1.010 Urine Protein NEG mg/dL Urine Glucose (UA) NEG mg/dL Urine Ketones NEG mg/dL Urine Occult Blood NEG Urine Nitrite NEG Urine Bilirubin NEG Urine Urobilinogen LESS THAN 2.0 MG/DL Urine Leukocyte Esterase SMALL Urine RBC LESS THAN 1 /hpf Urine WBC 3 /hpf Urine Squamous Epithelial Cells <1 /hpf Microscopic Urinalysis Comment CULT NOT INDICATED Blood Urea Nitrogen 17 MG/DL Creatinine 0.59 MG/DL Random Glucose 84 MG/DL Total Protein 8.5 GM/DL Albumin 3.6 GM/DL Calcium Level 9.4 MG/DL Magnesium Level 2.6 MG/DL Alkaline Phosphatase 82 U/L Aspartate Amino Transf (AST/SGOT) 12 U/L Alanine Aminotransferase (ALT/SGPT) 10 U/L Total Bilirubin 0.4 MG/DL Sodium Level 135 MEQ/L Potassium Level 4.2 MEQ/L Chloride Level 101 MEQ/L Carbon Dioxide Level 24.3 MEQ/L Anion Gap 10 MEQ/L Estimat Glomerular Filtration Rate 103 ML/MIN Total Creatine Kinase 19 U/L Troponin I LESS THAN 0.02 NG/ML MDM Medical Decision Making Medical Screen Exam Complete: Yes Emergency Medical Condition: Yes Medical Record Reviewed: Yes Interpretation(s) chest x-ray - CONCLUSION: No acute disease. No significant change has occurred. ct brain - CONCLUSION: No acute disease. No evidence of acute infarct, hemorrhage, mass or edema. Differential Diagnosis Vertigo versus intracranial abnormality versus electrolyte abnormality versus dehydration versus ACS Narrative Course 66-year-old female presents to the emergency department for evaluation of dizziness, nausea, shortness of breath with exertion for 2 days. She does report a trip and fall, hitting her head 6 days ago. EKG, CBC, CMP, magnesium, CK, troponin, UA are ordered and pending. Chest x-ray and CT of the brain are ordered and pending. Orthostatic vital signs are ordered. Patient is given normal saline 1 L IV bolus, Zofran 4 mg IV, meclizine 25 mg by mouth. EKG shows sinus rhythm, heart rate 77, no acute ST changes. CBC shows no acute abnormality. CMP shows no acute abnormality. CK is 19. Troponin is less than 0.02. Magnesium is 2.6. UA is negative for acute infection. Chest x-ray shows no acute disease. No significant change has occurred. CT of the brain shows no acute abnormality. I discussed results with patient. I instructed her to follow up with a primary care physician. She is ambulatory in the emergency department without issue. She verbalizes agreement and states that her aide made her come to the emergency department. She is to return here for any worsening of symptoms. She verbalizes agreement to this. I discussed case and results with my attending physician, Dr. Hankins, who agrees with plan and disposition. Diagnosis Primary Impression: Closed head injury Qualified Codes: S09.90XA - Unspecified injury of head, initial encounter Additional Impression: Dizziness Referrals: Primary Care Physician 2 days Patient Instructions: Dizziness (ED), General Instructions, Head Injury (ED) Additional Instructions: Follow-up with your primary care physician. Return to the emergency department for any acute worsening of symptoms. Med/Other Pt SpecificInfo: No Change to Meds Disposition: 01 DISCHARGE HOME Condition: Stable Amber Dixon ELVIN Dec 28, 2016 12:29
[2016-12-28] MEDS ORDERED: SODIUM CHLORIDE 0.9% FLUSH 10 ML FLUSH IVF PRN (12:30)
[2016-12-28] MEDS ORDERED: MECLIZINE HCL 25 MG TAB PO ONE (12:30)
[2016-12-28] MEDS ORDERED: ONDANSETRON HCL 4 MG/2 ML VIAL IVP ONE (12:30)
[2016-12-28 12:40] VITALS: BP_SYST 108; BP_SYST 113; BP_SYST 128; BP_DIAS 56; BP_DIAS 57; BP_DIAS 60; RESP 17
--- NOTE | 2016-12-28 12:41 | RADRPT ---
EXAM DATE/TIME: 12/28/2016 12:39 [facility] COMPARISON: CHEST SINGLE AP, September 13, 2016, 11:36. INDICATIONS : Short of breath. MEDICAL HISTORY : Chronic obstructive pulmonary disease. SURGICAL HISTORY : None. ENCOUNTER: Initial ACUITY: 2 days PAIN SCORE: 0/10 LOCATION: Bilateral chest FINDINGS: A single view of the chest demonstrates the lungs to be symmetrically aerated without evidence of mas s, infiltrate or effusion. The cardiomediastinal contours are unremarkable. Osseous structures are intact. CONCLUSION: No acute disease. No significant change has occurred. Mj Schrader MD on December 28, 2016 at 12:39 Board Certified Radiologist. This report was verified electronically.
[2016-12-28 13:14] LABS: AUTOMATED NEUTROPHIL # 6.4 TH/MM3 (1.8-7.7); BASOPHIL # 0.1 TH/MM3 (0-0.2); BASOPHIL % 1.2 % (0.0-2.0); EOSINOPHIL # 0.2 TH/MM3 (0-0.4); EOSINOPHIL % 2.5 % (0.0-4.0); HEMATOCRIT 36.1 % (35.0-46.0); LYMPH % 24.4 % (9.0-44.0); LYMPHOCYTE # 2.4 TH/MM3 (1.0-4.8); MEAN CELL VOLUME 72.8 FL (80.0-100.0); MEAN CORPUSCULAR HEMOGLOBIN 23.4 PG (27.0-34.0); MEAN CORPUSCULAR HGB CONC 32.1 % (32.0-36.0); MONO % 6.7 % (0.0-8.0); NEUT % 65.2 % (16.0-70.0); PLATELET COUNT 409 TH/MM3 (150-450); RED BLOOD COUNT 4.95 MIL/MM3 (4.00-5.30); RED CELL DISTRIBUTION WIDTH 23.5 % (11.6-17.2); WHITE BLOOD COUNT 9.8 TH/MM3 (4.0-11.0)
--- NOTE | 2016-12-28 13:14 | RADRPT ---
EXAM DATE/TIME: 12/28/2016 12:58 [facility] COMPARISON: CT BRAIN W/O CONTRAST, August 01, 2014, 16:18. INDICATIONS : Dizziness. Tripped and fell a week ago. RADIATION DOSE: 27.72 CTDIvol (mGy) MEDICAL HISTORY : Cardiovascular disease. Hepatitis C. SURGICAL HISTORY : Tubal ligation. Hysterectomy.Appendectomy. ENCOUNTER: Initial ACUITY: 1 week PAIN SCALE: 4/10 LOCATION: cranial TECHNIQUE: Multiple contiguous axial images were obtained of the head. Using automated exposure control and adj ustment of the mA and/or kV according to patient size, radiation dose was kept as low as reasonably a chievable to obtain optimal diagnostic quality images. DICOM format image data is available electro nically for review and comparison. FINDINGS: CEREBRUM: The ventricles are normal for age. No evidence of midline shift, mass lesion, hemorrhage or acute in farction. No extra-axial fluid collections are seen. POSTERIOR FOSSA: The cerebellum and brainstem are intact. The 4th ventricle is midline. The cerebellopontine angle i s unremarkable. EXTRACRANIAL: The visualized portion of the orbits is intact. SKULL: The calvaria is intact. No evidence of skull fracture. CONCLUSION: No acute disease. No evidence of acute infarct, hemorrhage, mass or edema. Kelvin Vivas MD on December 28, 2016 at 13:11 Board Certified Radiologist. This report was verified electronically.
[2016-12-28 13:15] LABS: BLOOD, URINE NEG (NEG); COMMENT (UR) CULT NOT INDICATED; CULTURE IF INDICATED CULT NOT INDICATED; GLUCOSE,URINE NEG (NEG); KETONE, URINE NEG (NEG); NITRITE,URINE NEG (NEG); PH, URINE 6.5 (5.0-8.5); SQUAMOUS EPITHELIAL CELL URINE <1 /hpf (0-5); URINE COLOR YELLOW (YELLW/STRAW)
[2016-12-28 13:25] LABS: HEMO FLAGS AUTO DIFF
[2016-12-28 13:33] LABS: ALT (GPT) 10 U/L (10-53); ANION GAP 10 MEQ/L (5-15); AST (GOT) 12 U/L (15-37); BICARBONATE 24.3 MEQ/L (21.0-32.0); BLOOD UREA NITROGEN 17 MG/DL (7-18); CHLORIDE 101 MEQ/L (98-107); GLOMERULAR FILTRATION RATE 103 ML/MIN (>89); MAGNESIUM 2.6 MG/DL (1.5-2.5); POTASSIUM 4.2 MEQ/L (3.5-5.1); SODIUM (NA) 135 MEQ/L (136-145)
[2016-12-28 13:38] LABS: ALKALINE PHOSPHATASE 82 U/L (45-117); TOTAL BILIRUBIN ADULT 0.4 MG/DL (0.2-1.0)
[2016-12-28 13:40] LABS: CREATINE KINASE 19 U/L (26-192)
[2016-12-28 14:06] LABS: PLATELET ESTIMATE SMEAR NORMAL (NORMAL); PLATELET MORPHOLOGY NORMAL (NORMAL); SCAN/DIFF AUTO DIFF CONFIRMED
--- NOTE | 2016-12-30 00:06 | EKG ---
Date Performed: 12/28/2016 Time Performed: 12:48:51 PTAGE: 66 years EKG: Sinus rhythm POSSIBLE RIGHT VENTRICULAR CONDUCTION DELAY BORDERLINE ECG PREVIOUS TRACING : 09/13/2016 11.55 Compared to prior tracing no significant change DOCTOR: Geovani Crow Interpretating Date/Time 12/30/2016 00:04:30
== END 2016-12-28 14:45 | disposition home or self-care (01) ==
LOC: NEPD 10:27
DX: S09.90XA Unspecified injury of head, initial encounter (principal); R42 Dizziness and giddiness; R94.31 Abnormal electrocardiogram [ECG] [EKG]; W18.09XA Striking against other object with subsequent fall, initial encounter
CPT/HCPCS: 70450; 71010; 80053; 81001; 82550; 83735; 84484; 85025; 93005; 96361; 96374; 99285; J2405; J7030

== ENCOUNTER 2017-03-15 13:15 | Emergency (ER) | payer MEDICARE, MEDICAID ==
[2017-03-15 13:16] VITALS: BP 119/58; PULSE 55; RESP 14; TEMP 98.2; O2SAT 99
--- NOTE | 2017-03-15 13:32 | PD ---
HPI Chief Complaint: Pain: Acute or Chronic Time Seen by Provider: 13:27 Travel History International Travel<30 days: No Contact w/Intl Traveler<30days: No Traveled to known affect area: No History of Present Illness HPI Patient comes in complaining of right-sided rib cage pain ongoing for 5 days. Patient's pain began when dancing with her friend whose squeezed her too hard causing the pain. Describes pain as a sharp stabbing pain right-sided ribs without radiation. Pain is worse with palpation, certain movement, and deep inspiration. Patient reports using [id number] pain patches as well as taking ibuprofen with minimal relief of her symptoms. She denies any chest pain , fevers, productive cough, shortness of breath, numbness or tingling or change in bowel or bladder, or other known trauma. PFSH Past Medical History Arthritis: Yes Asthma: No Autoimmune Disease: Yes (RHEUMATOID ARTHRITIS) Blood Disorders: No Bipolar Disorder: Yes Anxiety: Yes Depression: Yes Heart Rhythm Problems: Yes (MURMUR, PALPATATIONS) Cancer: Yes (CERVICAL CANCER) Cardiovascular Problems: No High Cholesterol: No Chemotherapy: Yes (CERVICAL) Chest Pain: No Congestive Heart Failure: No COPD: No Cerebrovascular Accident: No Diabetes: No Diminished Hearing: Yes (chilkat) Endocrine: No Gastrointestinal Disorders: Yes (GASTRIC ULCER IN PAST) GERD: No Glaucoma: No Genitourinary: No Headaches: No Hepatitis: Yes (Hep C) Hiatal Hernia: No Hypertension: No Immune Disorder: Yes (RHEUMATOID) Implanted Vascular Access Dvce: No Kidney Stones: No Medical other: No Musculoskeletal: Yes (FX RIGHT ANKLE, LEFT KNEE PAIN, RHEUMATOID ARTHRITIS) Neurologic: No Psychiatric: Yes (BIPOLAR, ANXIETY, HX PANIC ATTACKS) Reproductive: Yes Respiratory: Yes (COPD) Immunizations Current: Yes Migraines: No Myocardial Infarction: No Radiation Therapy: No Renal Failure: No Seizures: No Sleep Apnea: No Thyroid Disease: No Ulcer: Yes ("bled out" in '03) Tetanus Vaccination: < 5 Years Influenza Vaccination: No PNEUMOCCOCAL Vaccine (Year): 2 Menopausal: Yes : 3 Para: 3 Miscarriage: 0 : 0 Ectopic : No Ovarian Cysts: No Tubal Ligation: Yes Past Surgical History Abdominal Surgery: No AICD: No Appendectomy: Yes Arteriovenous Shunt: No Body Medical Devices: VINOD RIGHT FEMUR Cardiac Surgery: No Section: No Cholecystectomy: No Ear Surgery: No Endocrine Surgery: No Eye Surgery: Yes ( CHILD) Genitourinary Surgery: No Gynecologic Surgery: Yes (CERVICAL CONE PROCEDURE) Hysterectomy: Yes (H/O CERVICAL CANCER) Joint Replacement: Yes (rt knee lt knee Lt elbow) Neurologic Surgery: No Oral Surgery: No Pacemaker: No Thoracic Surgery: No Other Surgery: Yes (R KNEE REPLACEMENT,PROSTHETIC L ELBOW) Social History Alcohol Use: No Tobacco Use: Yes (4 cig a day) Substance Use: No Allergies-Medications (Allergen,Severity, Reaction): Coded Allergies: Sulfa (Sulfonamide Antibiotics) (Unverified Allergy, Severe, CHILLS, FEVER , 11/02/16) buspirone (Unverified Allergy, Severe, INCREASES ANXIETY, 11/02/16) codeine (Unverified Allergy, Severe, rash and swelling; hives, 11/02/16) PT HAS TAKEN PERCOCET BEFORE WITHOUT ANY PROBLEM PER RN 08/12/06 tramadol (Unverified Allergy, Severe, Dizziness, 11/02/16) pentazocine (Unverified Allergy, Unknown, UNKNOWN, 11/02/16) acetaminophen (Unverified Adverse Reaction, Intermediate, DIZZY, NAUSEA, ) hydrocodone (Unverified Adverse Reaction, Intermediate, DIZZY, NAUSEA, ) Reported Meds & Prescriptions Reported Meds & Active Scripts Active Mobic (Meloxicam) 7.5 Mg Tab 7.5 Mg PO DAILY 7 Days Robaxin (Methocarbamol) 750 Mg Tab 750 Mg PO TID PRN Reported l-Tryptophan (Tryptophan) 500 Mg Tab 1,500 Mg PO HS Diphenhydramine (Diphenhydramine HCl) 25 Mg Cap 25 Mg PO HS PRN Klonopin (Clonazepam) 2 Mg Tab 2 Mg PO HS Gabapentin 300 Mg Cap 600 Mg PO HS Gabapentin 300 Mg Cap 600 Mg PO AC LUNCH Gabapentin 300 Mg Cap 900 Mg PO DAILY Lamictal (Lamotrigine) 100 Mg Tab 100 Mg PO DAILY Review of Systems Except as stated in HPI: all other systems reviewed are Neg Physical Exam Narrative GENERAL: Well-developed, well nourished, in no acute distress, and non-ill appearing. SKIN: Focused skin assessment warm and dry. HEAD: Atraumatic. Normocephalic. EYES: Pupils equal and round. EOMI. No scleral icterus. No injection or drainage. ENT: No nasal bleeding or discharge. Mucous membranes pink and moist. NECK: Trachea midline. Supple. No nuclear rigidity. CARDIOVASCULAR: Regular rate and rhythm. No murmur appreciated. RESPIRATORY: No accessory muscle use. No respiratory distress. Clear to auscultation. Breath sounds equal bilaterally. Patient reports tenderness to palpation right rib cage midaxilla. There is no crepitus or step-off. No ecchymosis noted. GASTROINTESTINAL: Abdomen soft, non-tender, nondistended, and no guarding. Hepatic and splenic margins not palpable. No pulsatile mass. MUSCULOSKELETAL: No obvious deformities. No clubbing. No cyanosis. No edema. Full range of motion. NEUROLOGICAL: Awake and alert. No obvious cranial nerve deficits. Motor grossly within normal limits. Normal speech. PSYCHIATRIC: Appropriate mood and affect; insight and judgment normal. Data Data Last Documented VS Vital Signs Date Time Temp Pulse Resp B/P (MAP) Pulse Ox O2 Delivery O2 Flow Rate FiO2 03/15/17 13:16 98.2 55 14 119/58 (78) 99 Orders Orders Ribs, Uni (W/Exp Cxr-Min 3vw) (03/15/17 ) Resp Incentive Spirometry (03/15/17 ) Ed Discharge Order (03/15/17 15:56) MDM Medical Decision Making Medical Screen Exam Complete: Yes Emergency Medical Condition: Yes Interpretation(s) Last Impressions Ribs X-Ray 03/15/17 0000 Signed Impressions: Service Date/Time: Wednesday, March 15, 2017 13:48 - CONCLUSION: 1. No evidence of displaced rib fracture. 2. No acute cardio pulmonary process. 3. 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 Correlation with previous orthopedic procedures is recommended. Kelvin Vivas MD Differential Diagnosis Fracture, contusion, dislocation, pneumothorax Narrative Course The patient suffered a minor chest wall contusion. There is no clinical evidence to suggest intrathoracic injury nor cardiac injury at this time. The patient has no significant pain, shortness of breath or dyspnea. The patient moves air well without difficulty and is clear to auscultation. Heart sounds are audible without rubs, murmurs or gallops. There is no palpable crepitus. Pulses are symmetrical and strong. There is no significant tenderness over the lower chest to suggest injury to the liver nor spleen. Chest X-ray was normal without evidence of fracture, pneumothorax or hemothorax. The Mediastinum appeared within normal limits. Diagnosis was discussed with the patient. The patient is to return if develops any worsening pain difficulty breathing, or if coughs up blood or develops fever. Patient agrees with plan and was recommended to follow up with their regular physician. Patient in no obvious distress upon re-evaluation. All pertinent Radiology result(s) discussed with patient. Patient reports abnormality noted on x-ray of left humerus is from previous trauma and is not new. Patient was asked if they wanted to speak to my attending, which the patient did not wish to do at this time. Any questions/concerns in reference to patient diagnosis/condition discussed and clarified prior to patient's discharge. Reinforced sheer importance of close follow up with patient's primary physician or primary care clinic. Instructed patient to return to ED immediately, if symptoms return/ worsen. Patient showed understanding of above instructions. Further instructions and recommendations were detailed in discharge paperwork. Patient ambulated without difficulty out of ED at discharge. Diagnosis Primary Impression: Contusion of rib on right side Qualified Codes: S20.211A - Contusion of right front wall of thorax, initial encounter Patient Instructions: General Instructions, Rib Contusion (ED) Additional Instructions: Follow-up with your primary care physician this week for reevaluation. Take all medication as prescribed. Do not take ibuprofen while taking medication prescribed today. Apply ice to affected area 20 minutes per hour as needed for pain. Use incentive spirometer 10 times per hour while awake as instructed to decrease chances of developing pneumonia. Return to the emergency department if symptoms get worse. Med/Other Pt SpecificInfo: Prescription(s) given Scripts Meloxicam (Mobic) 7.5 Mg Tab 7.5 MG PO DAILY for Pain for 7 Days, #7 TAB 0 Refills Prov: Karla Walden MD 03/15/17 Disposition: 01 DISCHARGE HOME Condition: Stable Kirill Limon Mar 15, 2017 13:32
--- NOTE | 2017-03-15 15:44 | RADRPT ---
EXAM DATE/TIME: 03/15/2017 13:48 [facility] COMPARISON: CHEST PA & LAT, April 12, 2016, 13:12. CHEST SINGLE AP, September 13, 2016, 11:36. CHEST SINGLE AP, [place] tober 2016, 12:39. INDICATIONS : Right sided rib pain. MEDICAL HISTORY : Chronic obstructive pulmonary disease. Cardiovascular disease. Hepatitis C. SURGICAL HISTORY : Tubal ligation. Hysterectomy.Appendectomy. ENCOUNTER: Initial ACUITY: 2 days PAIN SCORE: 9/10 LOCATION: Right lower chest FINDINGS: Multiple views of the right ribs were performed. There is no evidence of displaced fracture. Expira tory view of the chest is negative for pneumothorax. The mediastinal structures are midline. Severe deformity is identified of the left humerus. Lack of bony connection is noted between the mid humeral shaft in the elbow. Elbow joint is destroyed. CONCLUSION: 1. No evidence of displaced rib fracture. 2. No acute cardio pulmonary process. 3. 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 Correlation with previous orthopedic procedures is recommended. Kelvin Vivas MD on March 15, 2017 at 15:37 Board Certified Radiologist. This report was verified electronically.
[2017-03-15] MEDS ORDERED: MOBI7.5T PO (15:54)
== END 2017-03-15 16:01 | disposition home or self-care (01) ==
LOC: NEPK 13:15
DX: S20.211A Contusion of right front wall of thorax, initial encounter (principal); F17.210 Nicotine dependence, cigarettes, uncomplicated; M06.9 Rheumatoid arthritis, unspecified; X58.XXXA Exposure to other specified factors, initial encounter; Y93.41 Activity, dancing
CPT/HCPCS: 71101; 94150; 99283